=== PATIENT | male | born 1965 | race Caucasian/White ===

== ENCOUNTER 2023-01-15 14:38 | Inpatient (IN) | payer OTHER, SELFPAY ==
[2023-01-15] VITALS (97 sets, daily range): BP systolic 81–154; BP diastolic 44–109; PULSE 64–104; RESP 10–30; TEMP 36.8; O2SAT 97–99
--- NOTE | 2023-01-15 14:45 | RT.EKG_ITS ---
APPROVED REPORT Exam: Resting ECG Reason for Exam: took nitro, cardiac problems Patient Location: E HR:81 bpm ECG Measurements Heart Rate 81 AXIS UT 176 P 88 QRSd 94 QRS 84 QT 374 T 47 QTc 434 Conclusion Sinus rhythm...normal P axis, V-rate 60- 99
--- NOTE | 2023-01-15 15:24 | ED.GENADUL_ITS ---
Discharge Plan Disposition Patient Disposition: Admit to [facility] Condition: Stable Discharge Details Clinical Impression: Acute non-ST elevation myocardial infarction (NSTEMI) Primary Care Provider: Nyla Chen ED Provider: Elias Blackburn Home Meds and New Rx's Prescriptions: Continued latanoprost 0.005 % Drops 1 drp ophthalmic (eye) DAILY terbinafine HCl 1 % Cream 1 applic TOPICAL PRN PRN atorvastatin 80 mg Tablet 80 mg PO DAILY glipizide 10 mg Tablet 10 mg PO BID metoprolol succinate 100 mg Tablet Extended Release 24 Hr 100 mg PO DAILY aspirin 81 mg Tablet,Delayed Release (Dr/Ec) 81 mg PO DAILY dextroamphetamine-amphetamine [Adderall XR] 20 mg Capsule,Extended Release 24hr 20 mg PO DAILY metformin 1,000 mg Tablet 2,000 mg PO DAILY nitroglycerin 0.4 mg Tablet, Sublingual 0.4 mg sublingual PRN PRN folic acid 1 mg Tablet 1 mg PO DAILY lisinopril 40 mg Tablet 40 mg PO DAILY cholecalciferol (vitamin D3) 25 mcg (1,000 unit) Capsule 25 mcg PO DAILY duloxetine 60 mg Capsule,Delayed Release(Dr/Ec) 120 mg PO DAILY peg 3350-electrolytes 227.1-21.5-6.36 gram Powder In Packet 240 ml PO DAILY rivaroxaban 20 mg Tablet 20 mg PO DAILY Ozempic 1 mg/dose (2 mg/1.5 mL) Pen Injector 1 mg SUBCUT QWEEK Discharge Data Discharge Physician: Elias Blackburn Medical Decision Making Patient presents to the emergency department complaining of sore throat that radiates to his back which is the same way he felt when he had angina in the past requiring stenting. Patient states that the symptoms started about 1 week ago. Been on and off. patient with a history of coronary artery disease takes aspirin daily and intubated today. EKG does not show any acute abnormality Labs are unremarkable first troponin was elevated. The second troponin is the same level the first troponin. Chest x-ray does not show any abnormality. Jhlva-go-zlsr ultrasound cardiac limited echocardiography was done by me shows normal left ventricular function with good contractility no pericardial effusion normal IVC collapsibility no wall motion abnormalities. Shared disposition: Patient with known coronary artery disease known history of pulmonary emboli. Takes aspirin daily as well as Xarelto who presents with atypical symptoms stating that he has a sore throat which is the same symptoms he had when he had angina. EKG is unremarkable Labs show elevation of the troponin at the same level. This patient probably had a non-STEMI or has unstable angina and will need to be admitted to the hospital for further cardiology management. Differential Diagnosis Differential Diagnosis: 1. Acute coronary syndrome 2. Pharyngitis 3. Non- STEMI Medical Records Medical records reviewed: Yes I reviewed the patient's medical records. Imaging Data Radiologic Study: Attestation: I personally reviewed and interpreted this imaging study as follows: Imaging: X-Ray My impression: no acute findings Radiologist's impression: Exam(s) XR PORTABLE CHEST AP EXAM: XR PORTABLE CHEST AP CLINICAL HISTORY: chest pain TECHNIQUE: 2D digital imaging was performed of the chest. One image was obtained. An AP view was obtained. COMPARISON: No exams were available for comparison FINDINGS: MEDIASTINUM: Normal. HEART: Normal. PULMONARY VASCULATURE: Normal. LUNGS: Clear. PLEURAL SPACE: No pleural effusion or pneumothorax. BONE:Within normal limits for the patient's age. OTHER FINDINGS:Normal. IMPRESSION: No acute pulmonary findings. DATA REPOSITORY: RADIATION DOSE DELIVERED: Lab Data Lab results reviewed: Yes I reviewed the patient's lab results. Labs: SPEC #: [id number] SHANTHI: 01/15/23 STATUS: COMP REQ #: [id number] RECD: 01/15/[address]: Elias Blackburn M.D. ENTERED: 01/15/[address]: NYLA CHEN FAX #: ORDERED: CBC/Diff Test Result Flag Reference Verified WBC 10.72 4.4-10.8 10^3/uL 01/15/23 RBC 4.64 4.36-5.78 10^6/uL 01/15/23 HGB 15.6 13.5-17.5 g/dL 01/15/23 HCT 45.5 40.0-50.0 % 01/15/23 MCV 98 H 80-95 fL 01/15/23 MCH 33.6 H 27.0-33.0 pg 01/15/23 MCHC 34.3 32.0-36.0 % 01/15/23 RDW 12.8 11.8-14.1 % 01/15/23 Platelet Count 172 130-400 10^3/uL 01/15/23 MPV 10.3 8.0-11.0 fL 01/15/23 Neutrophils % 62.9 01/15/23 Lymphocytes % 26.8 01/15/23 Monocytes % 7.6 01/15/23 Eosinophils % 2.1 01/15/23 Basophils % 0.3 01/15/23 Immature Grans % 0.3 01/15/23 Nucleated RBC 0.0 0.0-0.3 % 01/15/23 Absolute Neutrophil Count 6.75 H 1.2-6.7 10^3/uL 01/15/23 Absolute Lymphocyte Count 2.87 1.2-3.4 10^3/uL 01/15/23 Absolute Monocyte Count 0.82 H 0.1-0.8 10^3/uL 01/15/23 Absolute Eosinophil Count 0.22 0.0-0.7 10^3/uL 01/15/23 Absolute Basophil Count 0.03 0.0-0.2 10^3/uL 01/15/23 Patient: Eyal Link 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 STATUS: REG ER BED: DIS: SPEC #: [id number] SHANTHI: 01/15/23 STATUS: COMP REQ #: [id number] RECD: 01/15/[address] [facility] [address]: Elias Blackburn M.D. ENTERED: 01/15/23-1557 SERGO MONTES: NYLA CHEN FAX #: ORDERED: CMP, MG, Troponin I Test Result Flag Reference Verified Calcium 9.4 8.5-10.1 mg/dL 01/15/23 Glucose 128 H 74-106 mg/dL 01/15/23 BUN 12 7-18 mg/dL 01/15/23 Creatinine 1.2 0.70-1.30 mg/dL 01/15/23 Estimated GFR 69.66 mL/min/1.73m2 01/15/23 The eGFR is calculated from a serum creatinine using the CKD-EPI 2020 equation. Other variables required for the equation are gender and age; this equation does not include a race coefficient. This equation has similar overall performance to previous equations except values may differ, in particular, in patients with higher values of eGFR and younger-aged adults. Total Protein 7.7 6.4-8.2 g/dL 01/15/23 Albumin 3.5 3.4-5.0 g/dL 01/15/23 Bilirubin, Total 0.7 0.2-1.0 mg/dL 01/15/23 Alk Phos 76 46-116 U/L 01/15/23 Sodium 137 136-145 mmol/L 01/15/23 Potassium 3.9 3.5-5.1 mmol/L 01/15/23 Chloride 103 98-107 mmol/L 01/15/23 CO2 27.5 21.0-32.0 mmol/L 01/15/23 Anion Gap 6.5 3-11 mmol/L 01/15/23 AST 24 15-37 U/L 01/15/23 ALT 50 16-63 U/L 01/15/23 Magnesium 1.6 L 1.8-2.4 mg/dL 01/15/23 Cardiac Troponin I 503 *H <or=60 ng/L 01/15/23 Critical TROPONIN value reported to and readback from DOUGLAS MCGINNIS (ED) at 165001/15/23 by ADI An elevated/abnormal troponin value above 60ng/L (which is the 99th percentile cutoff of a normal, healthy reference population) must be interpreted in the context of the clinical presentation. Clinical and laboratory correlation is required to evaluate for an acute myocardial infarction. The results of this assay can be falsely lowered second Troponin 591 RUN DATE: 01/15/23 [facility] PAGE 1 RUN TIME: [address] RUN USER: [place] [address] Aniya Richardson MD PATIENT REPORT PATIENT: Eyal Link LOC: ER U #: [id number] /SX: 1965 M ROOM: RE01/15/[address]: Elias Blackburn M.D. STATUS: REG ER BED: DIS: SPEC #: [id number] SHANTHI: 01/15/23 STATUS: COMP REQ #: [id number] RECD: 01/15/[address]: Elias Blackburn M.D. ENTERED: 01/15/[address] [facility] [address]: NYLA CHEN FAX #: ORDERED: Troponin I Test Result Flag Reference Verified Cardiac Troponin I 591 *H <or=60 ng/L 01/15/23-1820 Critical value TROPONIN Reported to [email or web address] [address]/15/23 by [email or web address] An elevated/abnormal troponin value above 60ng/L (which is the 99th percentile cutoff of a normal, healthy reference population) must be interpreted in the context of the clinical presentation. Clinical and laboratory correlation is required to evaluate for an acute myocardial infarction. The results of this assay can be falsely lowered due to the consumption of Biotin (Vitamin B7). ECG Data Attestation: I personally reviewed and interpreted this ECG (s) as follows: Prior ECG tracings: available for review Interpretation: Normal sinus rhythm heart rate 81 DC interval normal normal axis no acute ST-T changes unchanged from previous EKG Core Measures AMI Core Measures Followed: Yes HPI General Date/Time Provider Initiated Documentation: 01/15/23 15:24 . HPI Narrative: Patient presents to the emergency department stating that he had a sore throat and 2 nitroglycerin with improvement. Patient states that he has a history of coronary artery disease with stent in place and he is the interventional episode that he had started as a sore throat that radiated to his back and neck which is nonradiating today. Patient is presenting to the emergency department frequently for the same symptoms and after use of nitroglycerin. States that the original sore throat was 6/10 and now is about 3/10. Denies any fever denies any chills denies any shortness of breath. States the last stresses he had was 2 years ago. Related Data Home Medications Medication Instructions Recorded Confirmed aspirin 81 mg tablet,delayed 81 mg PO DAILY 01/15/23 01/15/23 release atorvastatin 80 mg tablet 80 mg PO DAILY 01/15/23 01/15/23 cholecalciferol (vitamin D3) 25 25 mcg PO DAILY 01/15/23 01/15/23 mcg (1,000 unit) capsule dextroamphetamine-amphetamine ER 20 mg PO DAILY 01/15/23 01/15/23 20 mg 24hr capsule,extend release (Adderall XR) duloxetine 60 mg capsule,delayed 120 mg PO DAILY 01/15/23 01/15/23 release folic acid 1 mg tablet 1 mg PO DAILY 01/15/23 01/15/23 glipizide 10 mg tablet 10 mg PO BID 01/15/23 01/15/23 latanoprost 0.005 % eye drops 1 drp ophthalmic (eye) DAILY 01/15/23 01/15/23 lisinopril 40 mg tablet 40 mg PO DAILY 01/15/23 01/15/23 metformin 1,000 mg tablet 2,000 mg PO DAILY 01/15/23 01/15/23 metoprolol succinate 100 mg 100 mg PO DAILY 01/15/23 01/15/23 tablet,extended release 24 hr nitroglycerin 0.4 mg sublingual 0.4 mg sublingual PRN PRN 01/15/23 01/15/23 tablet peg 3350-electrolytes 227.1 240 ml PO DAILY 01/15/23 01/15/23 gram-21.5 gram-6.36gram oral powder packet rivaroxaban 20 mg tablet 20 mg PO DAILY 01/15/23 01/15/23 semaglutide 1 mg/dose (2 mg/1.5 1 mg subcut QWEEK 01/15/23 01/15/23 mL) subcutaneous pen injector (Ozempic) terbinafine HCl 1 % topical cream 1 applic topical PRN PRN 01/15/23 01/15/23 Allergies Allergy/AdvReac Type Severity Reaction Status Date / Time ciprofloxacin AdvReac Mild Itching Unverified 01/15/23 15:00 General Stated Complaint: GenMedical ALY: 3 Review of Systems All systems reviewed & are unremarkable except as noted in HPI and below Constitutional Constitutional: Reports as per HPI and Reports system reviewed and no additional complaints, except as documented Eyes Eyes: Reports system reviewed and no additional complaints, except as documented ENT Ears, Nose, Mouth, and Throat: Reports system reviewed and no additional complaints, except as documented Cardiovascular Cardiovascular: Reports as per HPI, Reports system reviewed and no additional complaints, except as documented and Denies chest pain with activity Respiratory Respiratory: Reports as per HPI Gastrointestinal Gastrointestinal: Reports as per HPI and Reports system reviewed and no additional complaints, except as documented Musculoskeletal Musculoskeletal: Reports system reviewed and no additional complaints, except as documented and Reports as per HPI Neurologic Neurologic: Reports system reviewed and no additional complaints, except as documented Psychiatric Psychiatric: Reports system reviewed and no additional complaints, except as documented Hematologic/Lymphatic Hematologic/Lymphatic: Reports system reviewed and no additional complaints, except as documented PFSH All Active Problems (Updated 01/15/23 @ 19:03 by Elias Blackburn MD) Acute non-ST elevation myocardial infarction (NSTEMI) (Acute) Social History Smoking/Tobacco Use Status: Current every day Tobacco Type: cigarettes Smoking risk assessment performed?: Yes Substance use type: does not use Do you feel safe at home: Yes Do you feel safe in your relationship?: Yes Exam Const General: cooperative, healthy appearing, comfortable and no acute distress HENMT Head: normal to inspection Ears: hearing grossly normal bilaterally and TM normal on the left Mouth: oral mucosae normal, lip normal, tongue normal and moist mucous membranes Throat: posterior oropharynx abnormal erythema and postnasal drainage Eyes General: appearance normal, both eyes and all related structures Neck Neck: normal visual inspection, full ROM and no lymphadenopathy Chest Chest: normal inspection of the chest and normal palpation of entire chest wall Resp Effort & Inspection: normal respiratory effort and able to speak in complete sentences Auscultation: clear to auscultation bilaterally Cardio Jugular venous pressure: no JVD Palpation: normal PMI Rate: regular rate Rhythm: regular rhythm GI Inspection: normal to inspection Back/Spine/Pelvis Back: no CVA tenderness Skin General skin exam: no rashes or lesions noted Rashes: no rashes Neuro General: patient alert, patient awake, patient oriented x3 and oriented Sensory Exam: no sensory deficits noted Course Vital Signs Vital signs: Vital Signs Temperature 36.8 C 01/15/23 14:48 Pulse 87 01/15/23 14:48 Respiratory Rate 20 01/15/23 14:48 Blood Pressure 140/68 01/15/23 14:48 Pulse Oximetry 99 01/15/23 14:48 Temperature 36.8 C 01/15/23 14:48 Temperature Source Skin 01/15/23 14:48 Pulse 87 01/15/23 14:48 Respiratory Rate 18 01/15/23 15:07 Respiratory Effort Normal, Non-Labored 01/15/23 15:07 Respiratory Depth Normal 01/15/23 15:07 Respiratory Pattern Normal 01/15/23 15:07 Blood Pressure 140/68 01/15/23 14:48 Blood Pressure Position Sitting 01/15/23 14:48 Pulse Oximetry 99 01/15/23 14:48 Oxygen Delivery Method Room Air 01/15/23 14:48 Oxygen Flow Rate 0 01/15/23 14:48 Pain Level 0 01/15/23 14:48 POCUS Exam (ED) Limited Cardiac Exam DATE OF EXAM: 01/15/23 TIME OF EXAM: 18:45 PROVIDER THAT PERFORMED THE STUDY: Elias Blackburn IS THIS A REPEAT EXAM DURING THIS ENCOUNTER: no REASON FOR EXAM: Chest pain and WI VISUALIZED STRUCTURES: Four Chambers, Left atrium, Left ventricle, LVOT, Right atrium, Right ventricle, Aortic valve, Mitral valve, Interventricular septum and IVC VIEW OBTAINED: Apical 4-Chamber, Parasternal long-axis, Parasternal short-axis and Subxiphoid PERTINENT FINDINGS/IMPRESSION: IVC inspiratory collapsability (normal) and No apparent abnormalities; No LV dysfunction, No pericardial effusion, No plethoric IVC, No RV dilation and No RV dysfunction DIFFERENTIAL DIAGNOSES: NSTEMI with preserved LV function no wall motion abnormalities Exam complete
--- NOTE | 2023-01-15 15:45 | DI.RAD_ITS ---
Exam(s) XR PORTABLE CHEST AP EXAM: XR PORTABLE CHEST AP CLINICAL HISTORY: chest pain TECHNIQUE: 2D digital imaging was performed of the chest. One image was obtained. An AP view was ob tained. COMPARISON: No exams were available for comparison FINDINGS: MEDIASTINUM: Normal. HEART: Normal. PULMONARY VASCULATURE: Normal. LUNGS: Clear. PLEURAL SPACE: No pleural effusion or pneumothorax. BONE:Within normal limits for the patient's age. OTHER FINDINGS:Normal. IMPRESSION: No acute pulmonary findings. DATA REPOSITORY: RADIATION DOSE DELIVERED:
[2023-01-15 16:12] LABS: Abs Immature Grans 0.03 10^3/uL (0.0-0.06); Absolute Basophil Count 0.03 10^3/uL (0.0-0.2); Absolute Eosinophil Count 0.22 10^3/uL (0.0-0.7); Absolute Lymphocyte Count 2.87 10^3/uL (1.2-3.4); Absolute Monocyte Count 0.82 10^3/uL (0.1-0.8); Absolute Neutrophil Count 6.75 10^3/uL (1.2-6.7); Basophils % 0.3; Eosinophils % 2.1; HCT 45.5 % (40.0-50.0); HGB 15.6 g/dL (13.5-17.5); Immature Grans % 0.3; Lymphocytes % 26.8; MCH 33.6 pg (27.0-33.0); MCHC 34.3 % (32.0-36.0); MCV 98 fL (80-95); MPV 10.3 fL (8.0-11.0); Monocytes % 7.6; Neutrophils % 62.9; Platelet Count 172 10^3/uL (130-400); RBC 4.64 10^6/uL (4.36-5.78); RDW 12.8 % (11.8-14.1); RDW-SD 46.2 fL; WBC 10.72 10^3/uL (4.4-10.8)
[2023-01-15 16:38] LABS: ALT 50 U/L (16-63); AST 24 U/L (15-37); Albumin 3.5 g/dL (3.4-5.0); Alkaline Phosphatase 76 U/L (46-116); Anion Gap 6.5 mmol/L (3-11); BUN 12 mg/dL (7-18); Bilirubin, Total 0.7 mg/dL (0.2-1.0); CO2 27.5 mmol/L (21.0-32.0); CREATININE 1.2 mg/dL (0.70-1.30); Calcium 9.4 mg/dL (8.5-10.1); Chloride 103 mmol/L (98-107); Estimated GFR 69.66 (mL/min/1.73m2); Glucose 128 mg/dL (74-106); Magnesium 1.6 mg/dL (1.8-2.4); Potassium 3.9 mmol/L (3.5-5.1); Sodium 137 mmol/L (136-145); Total Protein 7.7 g/dL (6.4-8.2)
[2023-01-15 16:54] LABS: Troponin I 503 ng/L (<or=60)
[2023-01-15 18:21] LABS: Troponin I 591 ng/L (<or=60)
--- NOTE | 2023-01-15 21:54 | HPE_ITS ---
Date of service: 01/15/23 Time of Service: 21:54 Assessment and Plan Assessment and plan (1) Acute non-ST elevation myocardial infarction (NSTEMI): Status: Acute Assessment and plan: Throat pain is appears to be anginal equivalent for this patient given his reported history and response to nitroglycerine. His EKG is totally normal, but his troponin is elevated. The symptoms started a few days ago and the troponin trend is relatively flat. His symptoms seem to have been triggered by missing at least 2 days of all of his medications. Given the above factors, although this is technically NSTEMI, I agree with ED treatment of continuing aspirin and rivaroxaban and not transitioning to heparin or adding DAPT with the additional bleeding risk and uncertain benefit. Continue to trend troponin overnight. He is on high intensity statin, get lipids to see if at goal of <70 for LDL. As noted above, adherence is a significant issue. His vital signs have been stable, continue metoprolol as well. (2) Smoker: Status: Acute Assessment and plan: Slightly contemplative. He quit for 2 years before after brother of CAD. Nicotrol for now. (3) Type 2 diabetes mellitus: Status: Acute Assessment and plan: He reports an A1c in the low 7s a few months ago, repeat with labs. Given no contrast and patient preference, continue his outpatient medications. Hold metformin if he ends up needing contrast. (4) Hypertension: Status: Chronic Assessment and plan: BP running a little high but he has missed a few days of medication this week, continue outpatient medication for now, goal <130/80. (5) Candidal intertrigo: Status: Acute Assessment and plan: Has antifungal cream (6) ADHD: Assessment and plan: Recent evidence suggests his stimulant therapy does not increase assisted heart disease or stroke, but I still think prudent to hold Adderall as inpatient. (7) DVT prophylaxis: Status: Acute Assessment and plan: He is on chronic DOAC for h/o PE (8) Discharge planning issues: Status: Acute Assessment and plan: Stable on telemetry given active heart disease. Full code. 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 The patient states the throat pain has been coming on during the last few days while climbing stairs or walking. It goes away with rest after a few minutes to an hour. It is associated with SOB and lightheadeness, no nausea or diaphoresis. This started a few days ago. 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 This was associated with some tingling in the left arm/hand. He took NTG, which he hadn't needed to take in years, and the pain went away. He currently is free of pain. This throat pain is the same pain he had prior to his previous cardiac stents. He does admit he went 2 days without his medication before resuming yesterday evening. He doesn't like taking pills and can forget at times. Review of Systems Constitutional Constitutional: Denies chills, Denies fever(s), Denies headache(s), Denies malaise, Reports poor appetite, Denies weakness and Reports weight loss (has noted in past 2 months, not sure how much but a couple notches on belt) Eyes Eyes: Denies change in vision and Denies irritation ENT Ears, Nose, Mouth, and Throat: Denies dental pain, Denies headache(s), Denies hoarseness, Denies mouth lesions, Reports nasal congestion (for months), Denies nasal discharge and Denies throat swelling Cardiovascular Cardiovascular: Denies chest pain, Reports leg edema (chronic, left worse than right), Denies palpitations and Denies orthopnea Respiratory Respiratory: Reports cough (relates to smoking), Denies hemoptysis, Denies excessive phlegm production and Denies wheezing Gastrointestinal Gastrointestinal: Denies abdominal pain, Denies melena, Denies hematochezia, Denies constipation, Denies heartburn, Denies diarrhea and Denies vomiting Genitourinary Genitourinary: Denies hematuria, Denies dysuria, Denies urinary frequency and Denies urinary incontinence Musculoskeletal Musculoskeletal: Denies joint swelling Integumentary/Breasts Skin/Breast: Reports rash (some yeast in arm pits, under breasts) and Denies skin ulcer Neurologic Neurologic: Denies headache(s), Denies sensory deficit and Denies weakness Psychiatric Psychiatric: Denies mood swings and Denies panic attacks Endocrine Endocrine: Denies polydipsia, Denies polyuria and Denies palpitations Hematologic/Lymphatic Hematologic/Lymphatic: Denies easy bleeding Allergic/Immunologic Allergic/Immunologic: Denies throat swelling and Denies wheezing PFSH All Active Problems (Updated 01/15/23 @ 22:20 by Jerry Miranda) Discharge planning issues (Acute) DVT prophylaxis (Acute) Smoker (Acute) Candidal intertrigo (Acute) Type 2 diabetes mellitus (Acute) Hypertension (Chronic) Acute non-ST elevation myocardial infarction (NSTEMI) (Acute) Medical History (Updated 01/15/23 @ 22:20 by Jerry Miranda) ADHD Coronary artery disease Glaucoma History of pulmonary embolism Perforation of colon as colonoscopy complication Surgical History (Updated 01/15/23 @ 22:07 by Jerry Miranda) S/P laparotomy multiple surgeries after perforation Family History (Updated 01/15/23 @ 22:08 by Jerry Miranda) Brother , multiple older brothers Heart disease Mother Heart disease Social History (Updated 01/15/23 @ 22:43 by Jerry Miranda) Smoking/Tobacco Use Status: Current every day Tobacco Type: cigarettes Counseling given: provider counseling, support medications and counseling >3 minutes Smoking risk assessment performed?: Yes Alcohol Intake: current Alcohol Intake frequency: 0-2 drinks per day Substance use type: does not use Do you feel safe at home: Yes Do you feel safe in your relationship?: Yes Additional Social history: Lives with GF Valentine and dog. 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 [employer] Allergies and Home Medications Allergies Allergy/AdvReac Type Severity Reaction Status Date / Time ciprofloxacin AdvReac Mild Itching Unverified 01/15/23 15:00 Home Medications Medication Instructions Recorded Confirmed Type aspirin 81 mg tablet,delayed 81 mg PO DAILY 01/15/23 01/15/23 History release atorvastatin 80 mg tablet 80 mg PO DAILY 01/15/23 01/15/23 History cholecalciferol (vitamin D3) 25 25 mcg PO DAILY 01/15/23 01/15/23 History mcg (1,000 unit) capsule dextroamphetamine-amphetamine ER 20 mg PO DAILY 01/15/23 01/15/23 History 20 mg 24hr capsule,extend release (Adderall XR) duloxetine 60 mg capsule,delayed 120 mg PO DAILY 01/15/23 01/15/23 History release folic acid 1 mg tablet 1 mg PO DAILY 01/15/23 01/15/23 History glipizide 10 mg tablet 10 mg PO BID 01/15/23 01/15/23 History latanoprost 0.005 % eye drops 1 drp ophthalmic (eye) DAILY 01/15/23 01/15/23 History lisinopril 40 mg tablet 40 mg PO DAILY 01/15/23 01/15/23 History metformin 1,000 mg tablet 2,000 mg PO DAILY 01/15/23 01/15/23 History metoprolol succinate 100 mg 100 mg PO DAILY 01/15/23 01/15/23 History tablet,extended release 24 hr nitroglycerin 0.4 mg sublingual 0.4 mg sublingual PRN PRN 01/15/23 01/15/23 History tablet peg 3350-electrolytes 227.1 240 ml PO DAILY 01/15/23 01/15/23 History gram-21.5 gram-6.36gram oral powder packet rivaroxaban 20 mg tablet 20 mg PO DAILY 01/15/23 01/15/23 History semaglutide 1 mg/dose (2 mg/1.5 1 mg subcut QWEEK 01/15/23 01/15/23 History mL) subcutaneous pen injector (Ozempic) terbinafine HCl 1 % topical cream 1 applic topical PRN PRN 01/15/23 01/15/23 History Exam Narrative Exam Narrative: GEN: Alert and oriented, pleasant and cooperative, gives linear history. No acute distress at rest lying in bed. HEENT: Head atraumatic. Conjunctiva clear, no icterus. PEERL, EOMI. no rhinorrhea. MMM, OP benign. Neck is supple with no masses or lymphadenopathy, trachea midline LUNGS: CTAB with normal effort CV: RRR with no murmurs, gallops, or rubs. ABD: +BS, soft, NT/ND. midline scar with large hernia vs weakness in abdominal wall to the left of the inferior scare EXT: no cyanosis, clubbing. 2+ luz LE edema to shins L>R, not tender or hot MSK: No joint redness or swelling NEURO: CN 2-12 grossly intact. Normal movement of 4 extremities. Normal speech and coordination. no tremor SKIN: No ulcers or open wounds. red patches with satellite lesions under breast folds.. PSYCH: normal mood and affect Results Imaging Chest x-ray: report reviewed (No acute pulmonary findings.) and image reviewed Additional studies: POCUS heart: IVC inspiratory collapsability (normal) and No apparent abnormalities; No LV dysfunction, No pericardial effusion, No plethoric IVC, No RV dilation and No RV dysfunction (per Dr. Blackburn) EKG: report reviewed and image reviewed (NSR, nl axis, intervals. No ischemic ST-T changes.) Labs 01/15/23 15:00 01/15/23 15:00 Labs: Laboratory Results - last 24 hr 01/15/23 01/15/23 01/15/23 15:00 15:00 17:55 WBC 10.72 RBC 4.64 Hgb 15.6 Hct 45.5 MCV 98 H MCH 33.6 H MCHC 34.3 RDW 12.8 Plt Count 172 MPV 10.3 Immature Gran % 0.3 Neutrophils % 62.9 Lymphocytes % 26.8 Monocytes % 7.6 Eosinophils % 2.1 Basophils % 0.3 Nucleated RBC % 0.0 Absolute Neutrophils 6.75 H Absolute Lymphocytes 2.87 Absolute Monocytes 0.82 H Absolute Eosinophils 0.22 Absolute Basophils 0.03 Sodium 137 Potassium 3.9 Chloride 103 Carbon Dioxide 27.5 Anion Gap 6.5 BUN 12 Creatinine 1.2 Est GFR (CKD-EPI 2020) 69.66 Glucose 128 H Calcium 9.4 Magnesium 1.6 L Total Bilirubin 0.7 AST 24 ALT 50 Alkaline Phosphatase 76 Troponin I 503 H* 591 H* Total Protein 7.7 Albumin 3.5 Last Vital Signs Temp 36.8 C 01/15/23 14:48 Pulse 84 01/15/23 20:01 Resp 22 01/15/23 20:01 BP 138/67 01/15/23 20:01 Pulse Ox 97 01/15/23 20:11 Time Spent Time spent with Patient: 55-74 minutes Time was spent: preparing to see the patient(eg.review tests), obtaining and/or reviewing separately otained hiistory, ordering medications,tests, procedures, referring, communicating with other health child care leader, indepentently interpreting results and counseling the patient
[2023-01-15 22:39] LABS: Calculated LDL 44 mg/dL (<100); Cholesterol 113 mg/dL (<200); HDL Cholesterol 31 mg/dL (40-60); Triglyceride 192 mg/dL (<150)
[2023-01-15 22:41] LABS: Troponin I 558 ng/L (<or=60)
[2023-01-15] MEDS: DULoxetine 30 MG CAP 120 MG PO (22:47)
[2023-01-15] MEDS: Rivaroxaban 10 MG TABLET 20 MG PO (22:48)
[2023-01-15] MEDS: Aspirin E.C. 81 MG TABEC PO (22:48)
[2023-01-15] MEDS: Cholecalciferol (Vitamin D3) 1,000 UNIT TAB 1000 UNITS PO (22:48)
[2023-01-15] MEDS: MAGNESIUM SULFATE 2 GM/50 ML BAG IVPB (22:49)
[2023-01-15 22:54] LABS: Vitamin B12 866 pg/mL (193-986)
[2023-01-15 23:21] LABS: *AMPHETAMINES SCREEN URINE Negative (Negative); *BARBITURATES SCREEN URINE Negative (Negative); *BENZODIAZEPINES SCREEN URINE Negative (Negative); Cannabinoids THC Negative (Negative); Cocaine Screen,Urine Negative (Negative); METHADONE URINE SCREEN Negative (Negative); OPIATES URINE SCREEN Negative (Negative)
[2023-01-15 23:22] LABS: Tricyclic Antidepressants Negative (Negative)
[2023-01-16 03:35] VITALS: BP 157/79; PULSE 98; RESP 18; TEMP 36; O2SAT 96
[2023-01-16 06:56] LABS: HCT 43.1 % (40.0-50.0); HGB 14.7 g/dL (13.5-17.5)
[2023-01-16 07:10] LABS: Magnesium 1.9 mg/dL (1.8-2.4)
[2023-01-16 07:19] LABS: Troponin I 385 ng/L (<or=60)
[2023-01-16 07:29] VITALS: BP 152/65; PULSE 90; RESP 18; TEMP 36.4; O2SAT 95
[2023-01-16 07:35] VITALS: PULSE 100
[2023-01-16] MEDS: Atorvastatin 40 MG TAB 80 MG PO (08:36)
[2023-01-16] MEDS: Folic Acid 1 MG TAB PO (08:36)
[2023-01-16] MEDS: Insulin Aspart 300 UNITS/3 ML PEN SC (08:37)
[2023-01-16] MEDS: Lisinopril 20 MG TAB 40 MG PO (08:37)
[2023-01-16] MEDS: metFORMIN 500 MG TAB 1000 MG PO (08:37)
[2023-01-16] MEDS: Metoprolol CR 100 MG TABCR PO (08:37)
--- NOTE | 2023-01-16 08:40 | CCONE_ITS ---
Date of service: 01/16/23 Time of Service: 08:40 Assessment and Plan Assessment and plan (1) Acute non-ST elevation myocardial infarction (NSTEMI): Status: Acute Assessment and plan: Patient has known coronary artery disease. He has had angina recently possibly related to omission of medications. Medications have been reinstituted. He currently appears stable. I would recommend referral for an outpatient follow- up and then cardiac catheterization to reassess his coronary anatomy. Patient appeared agreeable to this suggestion (2) Hypertension: Status: Chronic Assessment and plan: Continue therapy (3) Type 2 diabetes mellitus: Status: Acute Assessment and plan: Continue therapy History of Present Illness History of Present Illness Chief Complaint: Throat discomfort Narrative: This is a 57-year-old man with known coronary artery disease. In 2012 he had cardiac catheterization performed at [facility] because of typical angina he was found to have a 90% right coronary stenosis which was stented. Elsewhere he had a 30% stenosis of the circumflex, normal LAD and left main. Patient is followed by [facility] in [place]. He has not had any recent visit nor has he had stress testing for several years. His primary care provider is Dr. Chen in [place] He has diabetes hypertension dyslipidemia, family history of coronary disease, tobacco use and prior history of DVT for which she is on Xarelto He has noncompliance with medication, had not taken any of his medications for several days prior to presenting here with what sounds like progressive angina over a period of several days, if not longer. His anginal symptom is throat discomfort. He has taken nitroglycerin several times over the last week or so, reportedly with relief of symptoms Troponin has been elevated, though they have been decreasing. His EKG is normal He expresses that he would like to be discharged Review of Systems Cardiovascular Cardiovascular: Reports as per HPI, Reports chest pain with activity, Reports leg edema, Reports radiating jaw, neck or arm pain and Reports dyspnea Respiratory Respiratory: Reports dyspnea PFSH All Active Problems (Updated 01/15/23 @ 22:20 by Jerry Miranda) Discharge planning issues (Acute) DVT prophylaxis (Acute) Smoker (Acute) Candidal intertrigo (Acute) Type 2 diabetes mellitus (Acute) Hypertension (Chronic) Acute non-ST elevation myocardial infarction (NSTEMI) (Acute) Medical History (Updated 01/15/23 @ 22:20 by Jerry Miranda) ADHD Coronary artery disease Glaucoma History of pulmonary embolism Perforation of colon as colonoscopy complication Surgical History (Updated 01/15/23 @ 22:07 by Jerry Miranda) S/P laparotomy multiple surgeries after perforation Family History (Updated 01/15/23 @ 22:08 by Jerry Miranda) Brother , multiple older brothers Heart disease Mother Heart disease Social History (Updated 01/15/23 @ 22:43 by Jerry Miranda) Smoking/Tobacco Use Status: Current every day Tobacco Type: cigarettes Counseling given: provider counseling, support medications and counseling >3 minutes Smoking risk assessment performed?: Yes Alcohol Intake: current Alcohol Intake frequency: 0-2 drinks per day Substance use type: does not use Do you feel safe at home: Yes Do you feel safe in your relationship?: Yes Additional Social history: Lives with GF Valentine and dog. 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 [employer] Exam Narrative Exam Narrative: Obese no acute distress Neck Other: Unable to assess JVP carotid pulsations are grossly normal no bruits Resp Auscultation: clear to auscultation bilaterally Cardio Other: Heart is distant regular Extrem Other: Trace to 1+ right edema, 1-2+ left, venous stasis changes on the left Results Last Vital Signs Temp 36.4 C L 01/16/23 07:29 Pulse 90 01/16/23 07:29 Resp 18 01/16/23 07:29 BP 152/65 H 01/16/23 07:29 Pulse Ox 95 01/16/23 07:29 Labs 01/16/23 05:58 01/15/23 15:00 Labs: Laboratory Results - last 24 hr 01/15/23 01/15/23 01/15/23 15:00 15:00 17:55 WBC 10.72 RBC 4.64 Hgb 15.6 Hct 45.5 MCV 98 H MCH 33.6 H MCHC 34.3 RDW 12.8 Plt Count 172 MPV 10.3 Immature Gran % 0.3 Neutrophils % 62.9 Lymphocytes % 26.8 Monocytes % 7.6 Eosinophils % 2.1 Basophils % 0.3 Nucleated RBC % 0.0 Absolute Neutrophils 6.75 H Absolute Lymphocytes 2.87 Absolute Monocytes 0.82 H Absolute Eosinophils 0.22 Absolute Basophils 0.03 Sodium 137 Potassium 3.9 Chloride 103 Carbon Dioxide 27.5 Anion Gap 6.5 BUN 12 Creatinine 1.2 Est GFR (CKD-EPI 2020) 69.66 Glucose 128 H Hemoglobin A1c Calcium 9.4 Magnesium 1.6 L Total Bilirubin 0.7 AST 24 ALT 50 Alkaline Phosphatase 76 Troponin I 503 H* 591 H* Total Protein 7.7 Albumin 3.5 Triglycerides Total Cholesterol LDL Cholesterol, Calc HDL Cholesterol Vitamin B12 Urine Opiates Screen Urine Methadone Screen Ur Barbiturates Screen Ur Tricyclics Screen Ur Amphetamines Screen U Benzodiazepines Scrn Urine Cocaine Screen Ur THC Screen 01/15/23 01/15/23 01/15/23 21:48 21:48 21:48 WBC RBC Hgb Hct MCV MCH MCHC RDW Plt Count MPV Immature Gran % Neutrophils % Lymphocytes % Monocytes % Eosinophils % Basophils % Nucleated RBC % Absolute Neutrophils Absolute Lymphocytes Absolute Monocytes Absolute Eosinophils Absolute Basophils Sodium Potassium Chloride Carbon Dioxide Anion Gap BUN Creatinine Est GFR (CKD-EPI 2020) Glucose Hemoglobin A1c 7.0 H Calcium Magnesium Total Bilirubin AST ALT Alkaline Phosphatase Troponin I Total Protein Albumin Triglycerides 192 H Total Cholesterol 113 LDL Cholesterol, Calc 44 HDL Cholesterol 31 L Vitamin B12 866 Urine Opiates Screen Urine Methadone Screen Ur Barbiturates Screen Ur Tricyclics Screen Ur Amphetamines Screen U Benzodiazepines Scrn Urine Cocaine Screen Ur THC Screen 01/15/23 01/15/23 01/16/23 21:48 23:00 05:58 WBC RBC Hgb Hct MCV MCH MCHC RDW Plt Count MPV Immature Gran % Neutrophils % Lymphocytes % Monocytes % Eosinophils % Basophils % Nucleated RBC % Absolute Neutrophils Absolute Lymphocytes Absolute Monocytes Absolute Eosinophils Absolute Basophils Sodium Potassium Chloride Carbon Dioxide Anion Gap BUN Creatinine Est GFR (CKD-EPI 2020) Glucose Hemoglobin A1c Calcium Magnesium 1.9 Total Bilirubin AST ALT Alkaline Phosphatase Troponin I 558 H* 385 H* Total Protein Albumin Triglycerides Total Cholesterol LDL Cholesterol, Calc HDL Cholesterol Vitamin B12 Urine Opiates Screen Negative Urine Methadone Screen Negative Ur Barbiturates Screen Negative Ur Tricyclics Screen Negative Ur Amphetamines Screen Negative U Benzodiazepines Scrn Negative Urine Cocaine Screen Negative Ur THC Screen Negative 01/16/23 05:58 WBC RBC Hgb 14.7 Hct 43.1 MCV MCH MCHC RDW Plt Count MPV Immature Gran % Neutrophils % Lymphocytes % Monocytes % Eosinophils % Basophils % Nucleated RBC % Absolute Neutrophils Absolute Lymphocytes Absolute Monocytes Absolute Eosinophils Absolute Basophils Sodium Potassium Chloride Carbon Dioxide Anion Gap BUN Creatinine Est GFR (CKD-EPI 2020) Glucose Hemoglobin A1c Calcium Magnesium Total Bilirubin AST ALT Alkaline Phosphatase Troponin I Total Protein Albumin Triglycerides Total Cholesterol LDL Cholesterol, Calc HDL Cholesterol Vitamin B12 Urine Opiates Screen Urine Methadone Screen Ur Barbiturates Screen Ur Tricyclics Screen Ur Amphetamines Screen U Benzodiazepines Scrn Urine Cocaine Screen Ur THC Screen
[2023-01-16] MEDS: glipiZIDE 10 MG TAB PO (08:41)
--- NOTE | 2023-01-16 09:22 | PDOC.CMIN ---
- If Service Date Differs Date of service: 01/16/23 Time of Service: 09:22 Care Management Initial Assess REASON FOR HOSPITALIZATION:: NSTEMI PAST MEDICAL HISTORY/PAST SURGICAL HISTORY:: All Active Problems (Updated 01/15/23 @ 22:20 by Jerry Miranda). Discharge planning issues (Acute). DVT prophylaxis (Acute). Smoker (Acute). Candidal intertrigo (Acute). Type 2 diabetes mellitus (Acute). Hypertension (Chronic). Acute non-ST elevation myocardial infarction (NSTEMI) (Acute). Medical History (Updated 01/15/23 @ 22:20 by Jerry Miranda). ADHD. Coronary artery disease. Glaucoma. History of pulmonary embolism. Perforation of colon as colonoscopy complication. Surgical History (Updated 01/15/23 @ 22:07 by Jerry Miranda). S/P laparotomy. multiple surgeries after perforation PREVIOUS FUNCTIONAL STATUS/SOCIAL/FAMILY SUPPORTS:: Eyal lives in [facility] ADVANCE DIRECTIVES:: none on file Has patient been provided with info about the portal/API?: Yes Did the patient sign up for the portal?: No CODE STATUS:: Full Code INSURANCE COVERAGE / FINANCIAL ISSUES:: ME PRIMARY CARE PHYSICIAN:: Jerry Chen (ME) POTENTIAL DISCHARGE NEEDS:: follow up [facility] cardiology, PCP and plan of care PATIENT/FAMILY EDUCATION NEEDS:: Review of discharge instructions, limitations, activity, follow up plan, discuss Ask Me [employer] TRANSPORTATION:: via private vehicle with family/friends PLAN:: Anticipate Eyal will be discharged home with outpatient followup with cardiology at [facility]. Per Cardiology, he would benefit from a cardiac catheterization. Eyal will transport via private vehicle with family. CM will follow and assess for discharge planning needs.
--- NOTE | 2023-01-16 09:46 | DSE_ITS ---
Date of service: 01/16/23 Time of Service: 09:46 DS: Diagnosis Discharge Diagnosis (1) Acute non-ST elevation myocardial infarction (NSTEMI): Status: Acute (2) Hypertension: Status: Chronic (3) Type 2 diabetes mellitus: Status: Acute Discharge Plan Disposition Patient Disposition: Home Condition: Stable Discharge Details Reason For Visit: NSTEMI Admit Date/Time: 01/15/23 19:04 Admit Provider: Jerry Miranda Attending Provider: Jerry Miranda Primary Care Provider: Jerry Chen [facility] Course Hospital Course: This is a 57 year old male smoker with a history of DM, HTN, and CAD s/p LEAD PAINTER/stenting most recently in 2019 who presented to the ED with recurrent throat pain triggered by exertion and relieved by nitroglycerin.? This was in the setting of omitting his medication for 2 days. His work up in the ED showed troponin elevation to a peak of 591 (troponin -I). He was admitted to med/surg on telemetry for further monitoring and management. His medication resumed. He was seen by cardiology and recommendations for outpatient follow up with his waitangi tribunal member and then cardiac catheterization to reassess his coronary anatomy. He should continue his usual medication as directed, including nitroglycerin for his symptoms. He remains chest pain free and is stable for discharge to home with no services. discussed with DR Estrada. ? Home Meds and New Rx's Prescriptions: Continued latanoprost 0.005 % Drops 1 drp ophthalmic (eye) DAILY terbinafine HCl 1 % Cream 1 applic TOPICAL PRN PRN atorvastatin 80 mg Tablet 80 mg PO DAILY glipizide 10 mg Tablet 10 mg PO BID metoprolol succinate 100 mg Tablet Extended Release 24 Hr 100 mg PO DAILY aspirin 81 mg Tablet,Delayed Release (Dr/Ec) 81 mg PO DAILY dextroamphetamine-amphetamine [Adderall XR] 20 mg Capsule,Extended Release 24hr 20 mg PO DAILY metformin 1,000 mg Tablet 2,000 mg PO DAILY nitroglycerin 0.4 mg Tablet, Sublingual 0.4 mg sublingual PRN PRN folic acid 1 mg Tablet 1 mg PO DAILY lisinopril 40 mg Tablet 40 mg PO DAILY cholecalciferol (vitamin D3) 25 mcg (1,000 unit) Capsule 25 mcg PO DAILY duloxetine 60 mg Capsule,Delayed Release(Dr/Ec) 120 mg PO DAILY peg 3350-electrolytes 227.1-21.5-6.36 gram Powder In Packet 240 ml PO DAILY rivaroxaban 20 mg Tablet 20 mg PO DAILY Ozempic 1 mg/dose (2 mg/1.5 mL) Pen Injector 1 mg SUBCUT QWEEK Discharge Instructions Instructions: Coronary Artery Disease (DC) Stand Alone Forms: Nursing Discharge Form Referrals: Jerry Chen [Primary Care Provider] - 01/20/23 9:45 am Activity:: Activity as Tolerated Equipment/Supplies:: No Equipment Needed Diet:: As Tolerated Discharge Orders Discharge Orders: Discharge Order (Routine); Ordered 01/16/23 Ordered By: Deanne Peng Discharge Data Discharge Date/Time-TO BE ENTERED AT DEPARTURE: 01/16/23 10:25 DS: Summary Time Spent with Patient providing and/or coordinating discharge services: Less than 30 minutes Status at Discharge Functional status at discharge: independent ambulation Overall status at discharge: patient is back to baseline Mental Status: mental status grossly normal Speech and Movement: speech and movement normal Mood: congruent mood Affect: normal affect Exam Const General: cooperative, comfortable and no acute distress Nutritional Appearance: obese Orientation: alert, awake and oriented x3 HENMT Head: normal to inspection and normocephalic Mouth: oral mucosae normal Chest Chest: normal inspection of the chest Resp Effort & Inspection: normal respiratory effort Auscultation: clear to auscultation bilaterally Cardio Rate: regular rate Rhythm: regular rhythm GI Inspection: normal to inspection Skin General skin exam: no rashes or lesions noted Neuro General: patient alert, patient awake and patient oriented x3 Extrem General: normal to inspection and full ROM Psych Appearance: grossly normal Mental Status: mental status grossly normal Speech and Movement: speech and movement normal Mood: congruent mood Affect: normal affect Attitude: cooperative Thought Process: normal DS: Data Vitals/I&O Vitals and I&O: Vital Signs Temperature 36.4 C L 01/16/23 07:29 Temperature Source Tympanic 01/16/23 03:35 Pulse 100 H 01/16/23 07:35 Pulse Rhythm Regular 01/15/23 23:14 Pulse 80 01/15/23 20:01 Respiratory Rate 18 01/16/23 07:29 Respiratory Effort Normal 01/15/23 23:14 Respiratory Depth Normal 01/15/23 23:14 Respiratory Pattern Normal 01/15/23 23:14 Blood Pressure 152/65 H 01/16/23 07:29 Blood Pressure Mean 83 01/15/23 20:01 Blood Pressure Position Sitting 01/15/23 14:48 Pulse Oximetry 95 01/16/23 07:29 Oxygen Delivery Method Room Air 01/16/23 07:29 Oxygen Flow Rate 0 01/16/23 07:29 Pain Level 0 01/16/23 07:29 Intake & Output 01/15/23 01/15/23 01/16/23 11:59 23:59 11:59 Output Total 250 / 250 Balance -250 / -250 Weight 154.221 kg Output: Urine 250 / 250 Other: Urine Color Yellow Urine Appearance Clear Cloudy Urine Odor Normal Voiding Methods Urinal Data Completed and Pending Labs on day of discharge: Labs from last 24 hours 01/16/23 01/16/23 01/15/23 05:58 05:58 23:00 WBC RBC Hgb 14.7 Hct 43.1 MCV MCH MCHC RDW Plt Count MPV Immature Gran % Neutrophils % Lymphocytes % Monocytes % Eosinophils % Basophils % Nucleated RBC % Absolute Neutrophils Absolute Lymphocytes Absolute Monocytes Absolute Eosinophils Absolute Basophils Sodium Potassium Chloride Carbon Dioxide Anion Gap BUN Creatinine Est GFR (CKD-EPI 2020) Glucose Hemoglobin A1c Calcium Magnesium 1.9 Total Bilirubin AST ALT Alkaline Phosphatase Troponin I 385 H* Total Protein Albumin Triglycerides Total Cholesterol LDL Cholesterol, Calc HDL Cholesterol Vitamin B12 Urine Opiates Screen Negative Urine Methadone Screen Negative Ur Barbiturates Screen Negative Ur Tricyclics Screen Negative Ur Amphetamines Screen Negative U Benzodiazepines Scrn Negative Urine Cocaine Screen Negative Ur THC Screen Negative 01/15/23 01/15/23 01/15/23 21:48 21:48 21:48 WBC RBC Hgb Hct MCV MCH MCHC RDW Plt Count MPV Immature Gran % Neutrophils % Lymphocytes % Monocytes % Eosinophils % Basophils % Nucleated RBC % Absolute Neutrophils Absolute Lymphocytes Absolute Monocytes Absolute Eosinophils Absolute Basophils Sodium Potassium Chloride Carbon Dioxide Anion Gap BUN Creatinine Est GFR (CKD-EPI 2020) Glucose Hemoglobin A1c 7.0 H Calcium Magnesium Total Bilirubin AST ALT Alkaline Phosphatase Troponin I 558 H* Total Protein Albumin Triglycerides Total Cholesterol LDL Cholesterol, Calc HDL Cholesterol Vitamin B12 866 Urine Opiates Screen Urine Methadone Screen Ur Barbiturates Screen Ur Tricyclics Screen Ur Amphetamines Screen U Benzodiazepines Scrn Urine Cocaine Screen Ur THC Screen 01/15/23 01/15/23 01/15/23 21:48 17:55 15:00 WBC 10.72 RBC 4.64 Hgb 15.6 Hct 45.5 MCV 98 H MCH 33.6 H MCHC 34.3 RDW 12.8 Plt Count 172 MPV 10.3 Immature Gran % 0.3 Neutrophils % 62.9 Lymphocytes % 26.8 Monocytes % 7.6 Eosinophils % 2.1 Basophils % 0.3 Nucleated RBC % 0.0 Absolute Neutrophils 6.75 H Absolute Lymphocytes 2.87 Absolute Monocytes 0.82 H Absolute Eosinophils 0.22 Absolute Basophils 0.03 Sodium Potassium Chloride Carbon Dioxide Anion Gap BUN Creatinine Est GFR (CKD-EPI 2020) Glucose Hemoglobin A1c Calcium Magnesium Total Bilirubin AST ALT Alkaline Phosphatase Troponin I 591 H* Total Protein Albumin Triglycerides 192 H Total Cholesterol 113 LDL Cholesterol, Calc 44 HDL Cholesterol 31 L Vitamin B12 Urine Opiates Screen Urine Methadone Screen Ur Barbiturates Screen Ur Tricyclics Screen Ur Amphetamines Screen U Benzodiazepines Scrn Urine Cocaine Screen Ur THC Screen 01/15/23 15:00 WBC RBC Hgb Hct MCV MCH MCHC RDW Plt Count MPV Immature Gran % Neutrophils % Lymphocytes % Monocytes % Eosinophils % Basophils % Nucleated RBC % Absolute Neutrophils Absolute Lymphocytes Absolute Monocytes Absolute Eosinophils Absolute Basophils Sodium 137 Potassium 3.9 Chloride 103 Carbon Dioxide 27.5 Anion Gap 6.5 BUN 12 Creatinine 1.2 Est GFR (CKD-EPI 2020) 69.66 Glucose 128 H Hemoglobin A1c Calcium 9.4 Magnesium 1.6 L Total Bilirubin 0.7 AST 24 ALT 50 Alkaline Phosphatase 76 Troponin I 503 H* Total Protein 7.7 Albumin 3.5 Triglycerides Total Cholesterol LDL Cholesterol, Calc HDL Cholesterol Vitamin B12 Urine Opiates Screen Urine Methadone Screen Ur Barbiturates Screen Ur Tricyclics Screen Ur Amphetamines Screen U Benzodiazepines Scrn Urine Cocaine Screen Ur THC Screen PFSH All Active Problems (Updated 01/17/23 @ 00:01 by CardozLogan DE DIOS) Smoker (Acute) Candidal intertrigo (Acute) Type 2 diabetes mellitus (Acute) Hypertension (Chronic) Acute non-ST elevation myocardial infarction (NSTEMI) (Acute) Medical History (Updated 01/17/23 @ 00:01 by TEO DE DIOS) ADHD Coronary artery disease Glaucoma History of pulmonary embolism Perforation of colon as colonoscopy complication Surgical History (Updated 01/15/23 @ 22:07 by Jerry Miranda) S/P laparotomy multiple surgeries after perforation Family History (Updated 01/15/23 @ 22:08 by Jerry Miranda) Brother , multiple older brothers Heart disease Mother Heart disease Social History (Updated 01/15/23 @ 22:43 by Jerry Miranda) Smoking/Tobacco Use Status: Current every day Tobacco Type: cigarettes Counseling given: provider counseling, support medications and counseling >3 minutes Smoking risk assessment performed?: Yes Alcohol Intake: current Alcohol Intake frequency: 0-2 drinks per day Substance use type: does not use Do you feel safe at home: Yes Do you feel safe in your relationship?: Yes Additional Social history: Lives with [email or web address] Valentine and dog. 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
--- NOTE | 2023-01-16 10:44 | PDOC.CMPRO ---
- If Service Date Differs Date of service: 01/16/23 Time of Service: 10:44 Care Management Progress Note Eyal was discharged early in the day before CM was able to meet with him. He was discharged to home with no new services and will folllow up with his PCP. An appointment has been scheduled for 01/20/23 at 9:45 am.
== END 2023-01-16 10:25 | disposition home or self-care (01) | DRG 282 ==
LOC: ER 19:14 → MS 20:50
PROVIDERS: Admitting Provider Family Medicine; Emergency Provider Emergency Medicine Emergency Medical Services; PCP Family Medicine; Visit Provider Family Medicine
DX: I21.4 Non-ST elevation (NSTEMI) myocardial infarction (principal); E11.9 Type 2 diabetes mellitus without complications; F17.210 Nicotine dependence, cigarettes, uncomplicated; I10 Essential (primary) hypertension; B37.2 Candidiasis of skin and nail; F90.9 Attention-deficit hyperactivity disorder, unspecified type; I25.10 Atherosclerotic heart disease of native coronary artery without angina pectoris; Z95.5 Presence of coronary angioplasty implant and graft; Z86.711 Personal history of pulmonary embolism; H40.9 Unspecified glaucoma; Z79.84 Long term (current) use of oral hypoglycemic drugs; Z79.82 Long term (current) use of aspirin
CPT/HCPCS: 36415; 80053; 80061; 80307; 93005; 99285; 71045; 82607; 83036; 83735; 84484; 85014; 85018; 85025; 93010; 99238

== ENCOUNTER 2023-02-26 09:34 | Outpatient (CLI) | payer OTHER, SELFPAY ==
[2023-02-25 13:44] LABS: BUN 11 mg/dL (7-18); CREATININE 1.3 mg/dL (0.70-1.30); Calcium 9.1 mg/dL (8.5-10.1); Chloride 103 mmol/L (98-107); Estimated GFR 63.28 (mL/min/1.73m2); Glucose 161 mg/dL (74-106); Potassium 4.1 mmol/L (3.5-5.1); Sodium 138 mmol/L (136-145)
== END 2023-02-26 09:35 | disposition home or self-care (01) ==
PROVIDERS: PCP Family Medicine; Visit Provider Physician Assistant
DX: E11.9 Type 2 diabetes mellitus without complications (principal)
CPT/HCPCS: 36415; 80048

== ENCOUNTER 2023-08-21 12:16 | Emergency (ER) | payer OTHER, SELFPAY ==
[2023-08-21] VITALS (79 sets, daily range): BP systolic 82–150; BP diastolic 30–70; PULSE 84–119; RESP 14–30; TEMP 36.5–37.6; O2SAT 96
--- NOTE | 2023-08-21 12:30 | RT.EKG_ITS ---
APPROVED REPORT Exam: Resting ECG Reason for Exam: Vomiting, Atypical Chest pain Patient Location: E HR:113 bpm ECG Measurements Heart Rate 113 AXIS MD 171 P 75 QRSd 90 QRS 74 QT 318 T 65 QTc 436 Conclusion Sinus tachycardia no acute ischemic change
--- NOTE | 2023-08-21 12:37 | DI.CT_ITS ---
Exam(s) CT CHEST PE ABD PELVIS W EXAM: CT CHEST PE ABD PELVIS W CLINICAL HISTORY: Right chest pain, Hx of DVT, N/V, hx of Bowel perf. TECHNIQUE: Imaging Protocol: Axial CT angiography was performed with multi-slice acquisition and mu lti-planar and/or 3D reconstructions. CONTRAST MATERIAL: Intravenous: Omnipaque 350contrast volume:100 mL COMPARISON: No exams were available for comparison FINDINGS: CHEST: Tracheobronchial tree: Patent where visualized. Pulmonary parenchyma: There is a right upper lobe infiltrate with air bronchograms consistent with pn eumonia. Small ground-glass opacities are also seen in the right lower lobe with a small area of con solidation posteriorly. No focal consolidations are seen in the left lung. No architectural distort ion. Pulmonary Arteries: No evidence of filling defect to suggest pulmonary emboli. Mediastinum and [place]: Mildly enlarged lymph nodes are seen in the mediastinum and right hilum which a re likely reactive. The esophagus is unremarkable. Visualized thyroid gland: Unremarkable. Pleura: No effusion or pneumothorax. Heart: The heart is not dilated. Coronary artery calcifications and/or stents are present. No perica rdial effusion. Aorta: Thoracic aorta non-dilated. No evidence of dissection. Atherosclerosis. Bones: Within normal limits for the patient's age. Soft tissues: Gynecomastia. ABDOMEN: Liver: Normal density. No measurable mass. Portal, Superior Mesenteric, and Splenic Veins: Unremarkable. Gallbladder and Biliary Tract: Gallstone. No biliary ductal dilatation. Pancreas: Normal density, no abnormal calcifications or inflammatory process. Spleen: Normal. Adrenals: No masses seen. Kidneys: There is marked atrophy of the left kidney. There is compensatory hypertrophy of the right k idney. No radiodense stones or obstructive uropathy. Left renal cysts are present. No follow-up is re commended. Abdominal Aorta: Abdominal portion non-dilated. Atherosclerosis. IVC: There is an IVC filter in place below the level of the renal veins. Bowel: There is diastasis of the anterior abdominal wall and there is a left anterior abdominal wall hernia containing an unremarkable loop of small bowel. There is no evidence of bowel obstruction or b owel wall thickening. No evidence of appendicitis. There is no evidence of pneumatosis. Peritoneal Cavity: No ascites, collection or mesenteric inflammatory response. No free air. Lymph Nodes: Within normal limits. Bones: Within normal limits for the patient's age. Soft Tissues: Please see the above section under bowel. PELVIS: Bladder: Symmetric distention, no gross wall thickening. Reproductive Organs: Unremarkable as visualized. Lymph Nodes: Within normal limits. Bones: Within normal limits. IMPRESSION: 1. No evidence pulmonary embolism, thoracic aortic dissection or aneurysm. 2. Right upper and right lower lobe pneumonia. 3. No acute abdominal or pelvic process. 4. Incidental finding seen in the abdomen and pelvis as described above. 5. Findings were discussed with Yancy Jones at 2:47 p.m. on on 08/21/2023. RADIATION DOSE DELIVERED: Total DLP DATA REPOSITORY: All CT scans at this facility are submitted to the National Radiology Data Registry (NRDR) Dose Index Registry (DIR) with the [employer] (A[employer]). RADIATION OPTIMIZATION: All CT scans at this facility use at least one of these dose optimization te chniques: automated exposure control; mA and/or kV adjustment per patient size (includes targeted exa ms where dose is matched to clinical indication); or iterative reconstruction.
[2023-08-21] MEDS: Aspirin 81 MG CHEW 243 MG CH (12:39)
--- NOTE | 2023-08-21 12:39 | W.ED.GENAD ---
Discharge Plan Disposition Patient Disposition: Transfer-Acute Inpatient Care Specific Acute Inpt Facility: Other Discharge Details Clinical Impression: Septic shock, Pneumonia Primary Care Provider: Jerry Chen ED Provider: Jeane Swenson Home Meds and New Rx's Prescriptions: No Action latanoprost 0.005 % Drops 1 drp ophthalmic (eye) DAILY terbinafine HCl 1 % Cream 1 applic TOPICAL PRN PRN atorvastatin 80 mg Tablet 80 mg PO DAILY glipizide 10 mg Tablet 10 mg PO BID metoprolol succinate 100 mg Tablet Extended Release 24 Hr 150 mg PO DAILY dextroamphetamine-amphetamine [Adderall XR] 20 mg Capsule,Extended Release 24hr 20 mg PO DAILY metformin 1,000 mg Tablet 2,000 mg PO DAILY nitroglycerin 0.4 mg Tablet, Sublingual 0.4 mg sublingual PRN PRN folic acid 1 mg Tablet 1 mg PO DAILY lisinopril 40 mg Tablet 40 mg PO DAILY cholecalciferol (vitamin D3) 25 mcg (1,000 unit) Capsule 25 mcg PO DAILY duloxetine 60 mg Capsule,Delayed Release(Dr/Ec) 120 mg PO DAILY rivaroxaban 20 mg Tablet 20 mg PO DAILY Ozempic 1 mg/dose (2 mg/1.5 mL) Pen Injector 1 mg SUBCUT QWEEK Discharge Data Discharge Date/Time-TO BE ENTERED AT DEPARTURE: 08/21/23 19:29 Medical Decision Making <Yancy Jones NP - Last Filed: 08/25/23 11:25> 58-year-old male presents to the ER with a chief complaint of right-sided chest pain, which increased yesterday and today. Patient reports diaphoresis. He did have 1 episode of vomiting yesterday. He does have a history of PEs he is on Xarelto he is not on aspirin. He does have a history of significant GI history including a perforation of his colon which she has been followed for or seen at [facility]. Also has a history of coronary artery disease ADHD and glaucoma and obesity. Hypertension type 2 diabetes and an NSTEMI. He does have some tachycardia upon arrival, does have some lower extremity edema 3+ bilaterally greater + on the left. Does report that he has had DVT's in his lower legs in the past. He states that this feels just like his previous pulmonary embolism. Cardiac work-up ordered including EKG CBC CMP serial troponins, PT PTT lipase CT chest rule out PE abdomen/pelvis with contrast pending labs. Differential diagnosis includes but not limited to CAD, PR, pneumonia, PE, complication with surgery, sepsis leukocytosis with a count of 17.64, neutrophils 15.54 left shift. Lactate ordered, Blood cultures x 2 ordered and are pending 1326: Lactate 2.6 sodium 131, chloride 96 creatinine 1.7 GFR 45, glucose 240 mag slightly low at 1.4 lipase 94 which is also elevated. Broad-spectrum antibiotic ordered Rocephin and Zosyn. At this time pending CT chest abdomen pelvis, initial troponin within normal limits. Blood pressure 91/40 with a MAP of 56 however upon entering room patient does have his arm up over the railing, will closely observe. Repeat blood pressure is 92/41. 1421: Normal saline 1 L up at this time which was changed to wide open, Discussed possible admission with patient who verbalizes understanding is in agreement with plan. He did tell me that he did not take his Lasix this morning and that sometimes he does not remember to take his medications. Magnesium 1 g IV piggyback ordered for hypomagnesemia. 1420: Spoke with Dr. Lloyd with hospitalist regarding patient case and details.Awaiting improvement in BP to accept, 1447: BP 87/38 2nd liter NS being infused now. will consider Nor-epinephrine. 1500: norepinephrine drip ordered at 5 mics per minute we will titrate for blood pressure, at this time we have no ICU beds. 1502: [facility] transfer center called for transfer request, awaiting call back. 1510, blood pressure improved to 105/70 At this time blood pressure 120/1968 heart rate 105, care is to be handed off to DAJUAN Liang pending transfer and for sepsis due to right middle upper lobe pneumonia. Care accepted and transition from at 1600 Patient is alert and oriented, he is on 5 mcg of norepinephrine infusion he received 2 L out of the 4 L of sepsis bolus, we could adjust for ideal body weight, however patient has not showing any evidence of pulmonary edema and I think it is reasonable to continue fluids at this time His blood pressure on reassessment is 120/68, will discontinue norepinephrine at this time and give another liter of LR over 2 hours [facility] was agreeable to accepting the patient as we do not have capacity secondary to lack of ICU care However patient would prefer [facility] and so Dr Guthrie [facility] at the [facility] has accepted patient, he is aware he will likely need stepdown status secondary to sepsis and pneumonia Patient is stable here, of note, he has been off norepinephrine now for 1 hour and has pressure remains 110/59 with a stable MAP 71, will continue to hold pressors Patient will need ALS transport secondary to sepsis, pneumonia, and is agreeable to transport He is full CODE STATUS He has not required oxygen here Medical Records Medical records reviewed: Yes I reviewed the patient's medical records. Lab Data Lab results reviewed: Yes I reviewed the patient's lab results. Labs: 08/21/23 13:17 Blood Blood Culture - Pending 08/21/23 13:10 Blood Blood Culture - Pending Laboratory Tests Range/Units 08/21/23 08/21/23 08/21/23 12:32 12:32 12:59 WBC (4.4-10.8) 10^3/uL 17.64 H RBC (4.36-5.78) 10^6/uL 4.18 L Hgb (13.5-17.5) g/dL 13.9 Hct (40.0-50.0) % 41.7 MCV (80-95) fL 100 H MCH (27.0-33.0) pg 33.3 H MCHC (32.0-36.0) % 33.3 RDW (11.8-14.1) % 13.6 Plt Count (130-400) 10^3/uL 145 MPV (8.0-11.0) fL 9.6 Immature Gran % 0.9 Neutrophils % 88.1 Lymphocytes % 6.5 Monocytes % 4.1 Eosinophils % 0.1 Basophils % 0.3 Nucleated RBC % (0.0-0.3) % 0.0 Absolute Neutrophils (1.2-6.7) 10^3/uL 15.54 H Absolute Lymphocytes (1.2-3.4) 10^3/uL 1.15 L Absolute Monocytes (0.1-0.8) 10^3/uL 0.72 Absolute Eosinophils (0.0-0.7) 10^3/uL 0.02 Absolute Basophils (0.0-0.2) 10^3/uL 0.05 PT (9.1-11.1) sec 12.9 H INR (0.9-1.1) 1.3 H APTT (23.6-32.8) sec 34.8 H VBG Lactate (0.6-1.4) mmol/L 2.6 H* Sodium (136-145) mmol/L 131 L Potassium (3.5-5.1) mmol/L 4.2 Chloride (98-107) mmol/L 96 L Carbon Dioxide (21.0-32.0) mmol/L 24.5 Anion Gap (3-11) mmol/L 10.5 BUN (7-18) mg/dL 18 Creatinine (0.70-1.30) mg/dL 1.7 H Est GFR (CKD-EPI 2020) (mL/min/1.73m2) 45.58 Glucose (74-106) mg/dL 240 H Calcium (8.5-10.1) mg/dL 8.8 Magnesium (1.8-2.4) mg/dL 1.4 L Total Bilirubin (0.2-1.0) mg/dL 1.4 H AST (15-37) U/L 11 L ALT (16-63) U/L 21 Alkaline Phosphatase (46-116) U/L 76 Troponin I (<or=60) ng/L < 50 NT-Pro-B Natriuret Pep (<300) pg/mL 202 Total Protein (6.4-8.2) g/dL 7.8 Albumin (3.4-5.0) g/dL 2.9 L Lipase (16-77) U/L 94 H Cancelled COVID-19 Source Range/Units 08/21/23 14:39 WBC (4.4-10.8) 10^3/uL RBC (4.36-5.78) 10^6/uL Hgb (13.5-17.5) g/dL Hct (40.0-50.0) % MCV (80-95) fL MCH (27.0-33.0) pg MCHC (32.0-36.0) % RDW (11.8-14.1) % Plt Count (130-400) 10^3/uL MPV (8.0-11.0) fL Immature Gran % Neutrophils % Lymphocytes % Monocytes % Eosinophils % Basophils % Nucleated RBC % (0.0-0.3) % Absolute Neutrophils (1.2-6.7) 10^3/uL Absolute Lymphocytes (1.2-3.4) 10^3/uL Absolute Monocytes (0.1-0.8) 10^3/uL Absolute Eosinophils (0.0-0.7) 10^3/uL Absolute Basophils (0.0-0.2) 10^3/uL PT (9.1-11.1) sec INR (0.9-1.1) APTT (23.6-32.8) sec VBG Lactate (0.6-1.4) mmol/L Sodium (136-145) mmol/L Potassium (3.5-5.1) mmol/L Chloride (98-107) mmol/L Carbon Dioxide (21.0-32.0) mmol/L Anion Gap (3-11) mmol/L BUN (7-18) mg/dL Creatinine (0.70-1.30) mg/dL Est GFR (CKD-EPI 2020) (mL/min/1.73m2) Glucose (74-106) mg/dL Calcium (8.5-10.1) mg/dL Magnesium (1.8-2.4) mg/dL Total Bilirubin (0.2-1.0) mg/dL AST (15-37) U/L ALT (16-63) U/L Alkaline Phosphatase (46-116) U/L Troponin I (<or=60) ng/L NT-Pro-B Natriuret Pep (<300) pg/mL Total Protein (6.4-8.2) g/dL Albumin (3.4-5.0) g/dL Lipase (16-77) U/L COVID-19 Source Nasal/Nares <DAJUAN Liang - Last Filed: 08/21/23 19:42> 58-year-old male presents to the ER with a chief complaint of right-sided chest pain, which increased yesterday and today. Patient reports diaphoresis. He did have 1 episode of vomiting yesterday. He does have a history of PEs he is on Xarelto he is not on aspirin. He does have a history of significant GI history including a perforation of his colon which she has been followed for or seen at [facility]. Also has a history of coronary artery disease ADHD and glaucoma and obesity. Hypertension type 2 diabetes and an NSTEMI. He does have some tachycardia upon arrival, does have some lower extremity edema 2+ bilaterally 3+ on the left. Does report that he has had PEs in his lower legs in the past. He states that this feels just like his previous pulmonary embolism. Cardiac work-up ordered including EKG CBC CMP serial troponins, PT PTT lipase CT chest rule out PE abdomen/pelvis with contrast pending labs. Differential diagnosis includes but not limited to CAD, PR, pneumonia, PE, complication with surgery, sepsis leukocytosis with a count of 17.64, neutrophils 15.54 left shift. Lactate ordered 1326: Lactate 2.6 sodium 131, chloride 96 creatinine 1.7 GFR 45, glucose 240 mag slightly low at 1.4 lipase 94 which is also elevated. Broad-spectrum antibiotic ordered Rocephin and Zosyn. At this time pending CT chest abdomen pelvis, initial troponin within normal limits. Blood pressure 91/40 with a MAP of 56 however upon entering room patient does have his arm up over the railing, will closely observe. Repeat blood pressure is 92/41. 1421: Normal saline 1 L up at this time which was changed to wide open, Discussed possible admission with patient who verbalizes understanding is in agreement with plan. He did tell me that he did not take his Lasix this morning and that sometimes he does not remember to take his medications. Magnesium 1 g IV piggyback ordered for hypomagnesemia. 1420: Spoke with Dr. Lloyd with hospitalist regarding patient case and details.Awaiting improvement in BP to accept, 1447: BP 87/38 2nd liter NS being infused now. will consider Nor-epinephrine. 1500: norepinephrine drip ordered at 5 mics per minute we will titrate for blood pressure, at this time we have no ICU beds. 1502: [facility] transfer center called for transfer request, awaiting call back. 1510, blood pressure improved to 105/70 At this time blood pressure 120/1968 heart rate 105, care is to be handed off to DAJUAN Liang pending transfer and for sepsis due to right middle upper lobe pneumonia. Care accepted and transition from at 1600 Patient is alert and oriented, he is on 5 mcg of norepinephrine infusion he received 2 L out of the 4 L of sepsis bolus, we could adjust for ideal body weight, however patient has not showing any evidence of pulmonary edema and I think it is reasonable to continue fluids at this time His blood pressure on reassessment is 120/68, will discontinue norepinephrine at this time and give another liter of LR over 2 hours [facility] was agreeable to accepting the patient as we do not have capacity secondary to lack of ICU care However patient would prefer [facility] and so Dr Guthrie ICU at the [facility] has accepted patient, he is aware he will likely need stepdown status secondary to sepsis and pneumonia Patient is stable here, of note, he has been off norepinephrine now for 1 hour and has pressure remains 110/59 with a stable MAP 71, will continue to hold pressors Patient will need ALS transport secondary to sepsis, pneumonia, and is agreeable to transport He is full CODE STATUS He has not required oxygen here HPI <Yancy Jones NP - Last Filed: 08/25/23 11:25> General Mode of arrival: ambulatory. Date/Time Provider Initiated Documentation: 08/21/23 12:25. Limitations to Documentation: no limitations. Information obtained by: patient, RN notes reviewed and old records reviewed. History of Present Illness described as moderate, with intensity rated at 7. Quality is described as sharp, and is localized to the chest and right. Patient reports no radiation. and it has been constant. Patient notes diaphoresis, nausea/vomiting, shortness of breath and other (Tacycardia). Patient did receive the following treatments prior to arrival, NSAID (Tylenol) HPI Narrative: 58-year-old male presents to the ER with chief complaint of right-sided chest wall pain last couple of days. He does have a past medical history of type 2 diabetes, CAD with 5 stents, hypertension hyperlipidemia, PE and DVT, obesity. Related Data Home Medications Medication Instructions Recorded Confirmed atorvastatin 80 mg tablet 80 mg PO DAILY 01/15/23 08/21/23 cholecalciferol (vitamin D3) 25 25 mcg PO DAILY 01/15/23 08/21/23 mcg (1,000 unit) capsule dextroamphetamine-amphetamine ER 20 mg PO DAILY 01/15/23 08/21/23 20 mg 24hr capsule,extend release (Adderall XR) duloxetine 60 mg capsule,delayed 120 mg PO DAILY 01/15/23 08/21/23 release folic acid 1 mg tablet 1 mg PO DAILY 01/15/23 08/21/23 glipizide 10 mg tablet 10 mg PO BID 01/15/23 08/21/23 latanoprost 0.005 % eye drops 1 drp ophthalmic (eye) DAILY 01/15/23 08/21/23 lisinopril 40 mg tablet 40 mg PO DAILY 01/15/23 08/21/23 metformin 1,000 mg tablet 2,000 mg PO DAILY 01/15/23 08/21/23 metoprolol succinate 100 mg 150 mg PO DAILY 01/15/23 08/21/23 tablet,extended release 24 hr nitroglycerin 0.4 mg sublingual 0.4 mg sublingual PRN PRN 01/15/23 08/21/23 tablet rivaroxaban 20 mg tablet 20 mg PO DAILY 01/15/23 08/21/23 semaglutide 1 mg/dose (2 mg/1.5 1 mg subcut QWEEK 01/15/23 08/21/23 mL) subcutaneous pen injector (Ozempic) terbinafine HCl 1 % topical cream 1 applic topical PRN PRN 01/15/23 08/21/23 Allergies Allergy/AdvReac Type Severity Reaction Status Date / Time ciprofloxacin AdvReac Mild Itching Unverified 08/21/23 14:24 General Stated Complaint: Nausea/Vomit/Diar ALY: 3 Review of Systems <Yancy Jones NP - Last Filed: 08/25/23 11:25> All systems reviewed & are unremarkable except as noted in HPI and below Constitutional Constitutional: Denies chills, Reports excessive sweating and Denies fever(s) Cardiovascular Cardiovascular: Reports chest pain, Reports chest pain at rest, Reports rapid heart rate, Reports pedal edema, Reports edema and Reports dyspnea Respiratory Respiratory: Reports dyspnea Gastrointestinal Gastrointestinal: Reports abdominal pain and Reports vomiting Endocrine Endocrine: Reports excessive sweating PFSH <Yancy Jones NP - Last Filed: 08/25/23 11:25> All Active Problems (Updated 08/21/23 @ 19:42 by DAJUAN Liang) Pneumonia (Acute) Septic shock (Acute) Smoker (Acute) Candidal intertrigo (Acute) Type 2 diabetes mellitus (Acute) Hypertension (Chronic) Acute non-ST elevation myocardial infarction (NSTEMI) (Acute) Medical History History of pulmonary embolism ADHD Glaucoma Coronary artery disease Perforation of colon as colonoscopy complication Surgical History S/P laparotomy multiple surgeries after perforation Family History Brother , multiple older brothers Heart disease Mother Heart disease Social History Smoking/Tobacco Use Status: Current every day Tobacco Type: cigarettes Counseling given: provider counseling, support medications and counseling >3 minutes Smoking risk assessment performed?: Yes Alcohol Intake: current Alcohol Intake frequency: 0-2 drinks per day Substance use type: does not use Do you feel safe at home: Yes Do you feel safe in your relationship?: Yes Additional Social history: Lives with GF Valentine and dog. 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 [employer] <Yancy Jones NP - Last Filed: 08/25/23 11:25> Vital Signs Vital signs: Vital Signs Temperature 36.5 C 08/21/23 12:21 Pulse 119 H 08/21/23 12:21 Respiratory Rate 18 08/21/23 12:21 Blood Pressure 150/64 H 08/21/23 12:21 Pulse Oximetry 96 08/21/23 12:21 Temperature 36.5 C 08/21/23 12:21 Temperature Source Skin 08/21/23 12:21 Pulse 119 H 08/21/23 12:21 Respiratory Rate 18 08/21/23 12:21 Respiratory Effort Short of Breath 08/21/23 12:25 Blood Pressure 150/64 H 08/21/23 12:21 Blood Pressure Position Supine 08/21/23 12:21 Pulse Oximetry 96 08/21/23 12:21 Oxygen Delivery Method Room Air 08/21/23 12:21 Oxygen Flow Rate 0 08/21/23 12:21 Pain Level 9 08/21/23 12:21 Critical Care Time <Yancy Jones NP - Last Filed: 08/25/23 11:25> Critical Care Time Critical Care Time: Yes <DAJUAN Liang - Last Filed: 08/21/23 19:42> Critical Care Time Attestation: Approximate 45 minutes of critical care time was performed secondary to pneumonia with septic shock Lactic acidosis Right upper lobe infiltrate, requiring telemetry monitoring, norepinephrine infusion, 2 large-bore IVs, diagnostic lab interpretation, and ICU level of care Sign Out <Yancy Jones NP - Last Filed: 08/25/23 11:25> Sign Out Data: Sign Out Comment: Patient to be signed out pending transfer to [facility] for sepsis pneumonia. Patient is on a nor-epi drip at 5 mics a minute. Last updated by Yancy Jones NP at 08/21/23 16:04
[2023-08-21 12:42] LABS: Abs Immature Grans 0.15 10^3/uL (0.0-0.06); Absolute Basophil Count 0.05 10^3/uL (0.0-0.2); Absolute Monocyte Count 0.72 10^3/uL (0.1-0.8); Basophils % 0.3; Eosinophils % 0.1; HCT 41.7 % (40.0-50.0); HGB 13.9 g/dL (13.5-17.5); Immature Grans % 0.9; Lymphocytes % 6.5; MCH 33.3 pg (27.0-33.0); MCHC 33.3 % (32.0-36.0); MCV 100 fL (80-95); MPV 9.6 fL (8.0-11.0); Monocytes % 4.1; Neutrophils % 88.1; Platelet Count 145 10^3/uL (130-400); RBC 4.18 10^6/uL (4.36-5.78); RDW 13.6 % (11.8-14.1); RDW-SD 50.1 fL; WBC 17.64 10^3/uL (4.4-10.8)
[2023-08-21 12:45] LABS: Absolute Eosinophil Count 0.02 10^3/uL (0.0-0.7); Absolute Lymphocyte Count 1.15 10^3/uL (1.2-3.4); Absolute Neutrophil Count 15.54 10^3/uL (1.2-6.7)
[2023-08-21 12:59] LABS: ALT 21 U/L (16-63); AST 11 U/L (15-37); Albumin 2.9 g/dL (3.4-5.0); Alkaline Phosphatase 76 U/L (46-116); Anion Gap 10.5 mmol/L (3-11); BUN 18 mg/dL (7-18); Bilirubin, Total 1.4 mg/dL (0.2-1.0); CO2 24.5 mmol/L (21.0-32.0); CREATININE 1.7 mg/dL (0.70-1.30); Calcium 8.8 mg/dL (8.5-10.1); Chloride 96 mmol/L (98-107); Estimated GFR 45.58 (mL/min/1.73m2); Glucose 240 mg/dL (74-106); Lipase 94 U/L (16-77); Magnesium 1.4 mg/dL (1.8-2.4); Potassium 4.2 mmol/L (3.5-5.1); Sodium 131 mmol/L (136-145); Total Protein 7.8 g/dL (6.4-8.2); Troponin I < 50 ng/L (<or=60)
[2023-08-21 13:06] LABS: INR 1.3 (0.9-1.1); PTT Activated 34.8 sec (23.6-32.8); Prothrombin Time 12.9 sec (9.1-11.1)
[2023-08-21 13:08] LABS: Lactate 2.6 mmol/L (0.6-1.4)
[2023-08-21] MEDS: Normal Saline - Diluent 50 ML VIAL IJ (13:30)
[2023-08-21] MEDS: Normal Saline Flush 10 ML SYR IVP (13:30)
[2023-08-21] MEDS: Omnipaque 350 MG/ML 500 ML BTL-Imaging package 100 ML IJ (13:31)
[2023-08-21] MEDS: PIPERACILLIN/TAZO 3.375 GM in Normal Saline 50 ML IVPB (13:47)
[2023-08-21] MEDS: Normal Saline 1,000 ML 250 ML IV (13:47)
[2023-08-21 13:57] LABS: NT-proBNP 202 pg/mL (<300)
[2023-08-21] MEDS: cefTRIAXone 2 GM/50 ML BAG IVPB (14:19)
[2023-08-21 14:43] LABS: Source Nasal/Nares
[2023-08-21] MEDS: Normal Saline 1,000 ML 1000 ML IV (14:50)
[2023-08-21] MEDS: ACETAMINOPHEN 1,000 MG/100 ML BTL 400 MG IVPB (14:51)
[2023-08-21] MEDS: Norepinephrine in D5W 8 MG/250 ML BAG 9.375 MG IV (15:03)
[2023-08-21] MEDS: MAGNESIUM SULFATE 1 GM/100 ML BAG IVPB (15:04)
[2023-08-21 15:15] LABS: COVID-19 PCR Negative (Negative)
[2023-08-21] MEDS: Normal Saline 500 ML IV (15:46)
[2023-08-21 15:58] LABS: Troponin I < 50 ng/L (<or=60)
[2023-08-21] MEDS: Lactated Ringers 1,000 ML 1000 ML IV (16:35)
[2023-08-21 16:38] LABS: Bilirubin Negative (Negative); Blood Trace-intact (Negative); Clarity Clear (Clear); Glucose Negative (Negative); Ketones Negative (Negative); Leukocyte Esterase Negative (Negative); Nitrite Negative (Negative); Urobilinogen 0.2 mg/dL (Up to 0.2); pH 5.5 (5-8)
[2023-08-21 16:49] LABS: Epithelial Cells Rare HPF (Negative); RBC 0-2 HPF (0-2)
[2023-08-21 16:50] LABS: Bacteria Few HPF (Negative); C & S Indicated? Yes; Casts Negative LPF (Negative); Crystals Negative HPF (Negative); Mucus Negative (Negative)
[2023-08-21 18:22] LABS: Lactate 2.2 mmol/L (0.6-1.4)
[2023-08-21 19:22] LABS: COVID-19 PCR Negative (Negative); Influenza A PCR Negative (Negative); Influenza B PCR Negative (Negative); RSV PCR Negative (Negative)
[2023-08-21 19:29] LABS: Source NASOPHARYNX
--- NOTE | 2023-08-22 06:07 | NUR.NOTE ---
Positive blood culture result called to ED from Lab. Patient transferred to [facility]. Test result called to [facility]. Copy of test result faxed to [phone].Nursing Note:
--- NOTE | 2023-08-24 08:40 | NUR.NOTE ---
Accessed pt chart for name of accepting physician for transfer paperwork. None documented. Nursing Note:
== END 2023-08-21 19:29 | disposition short-term general hospital (02) ==
PROVIDERS: Registered Nurse Emergency; Emergency Provider Physician Assistant; PCP Family Medicine
DX: J18.9 Pneumonia, unspecified organism (principal); R65.21 Severe sepsis with septic shock; E83.42 Hypomagnesemia; Z95.5 Presence of coronary angioplasty implant and graft; Z20.822 Contact with and (suspected) exposure to COVID-19; I25.10 Atherosclerotic heart disease of native coronary artery without angina pectoris
CPT/HCPCS: 36415; 71275; 74177; 80053; 83690; 87040; 87077; 87635; 87637; 93005; 96365; 96366; 96367; 96368; 96375; 99285; 81003; 81015; 83605; 83735; 83880; 84484; 85025; 85610; 85730; 87086; 93010; J0131; J2543; J3475

== ENCOUNTER 2023-10-15 22:30 | Emergency (ER) | payer OTHER, SELFPAY ==
--- NOTE | 2023-10-15 22:31 | W.ED.GENAD ---
HPI General Mode of arrival: ambulatory. Date/Time Provider Initiated Documentation: 10/15/23 22:31. Limitations to Documentation: no limitations. Information obtained by: patient. HPI Narrative: This is a 58-year-old male with history of type 2 diabetes, hypertension NSTEMI who does not check his blood sugar often and avoids going to the doctor's is necessary, who tells me he was advised to come in by family members today. He presents with pain and swelling under the left breast which has been draining intermittently. The pain began several weeks ago and is associated with tenderness and swelling. He tells me that it began draining over the past 24 hours. He said it drained a lot, but is unable to quantitate the amount. The pain is 1-2 out of 10 is aggravated with palpation and movement. He has had chills but no documented fever. [facility] He does have a history of pulmonary embolus and is on Eliquis. He also tells me he has a history of ADHD. He cannot recall the date of his last tetanus immunization. He does have a local physician but has not seen them for this complaint. He also has a history of a colonic perforation and a ventral hernia secondary to his previous abdominal surgeries. Related Data Home Medications Medication Instructions Recorded Confirmed atorvastatin 80 mg tablet 80 mg PO DAILY 01/15/23 10/17/23 cholecalciferol (vitamin D3) 25 25 mcg PO DAILY 01/15/23 10/17/23 mcg (1,000 unit) capsule dextroamphetamine-amphetamine ER 20 mg PO DAILY 01/15/23 10/17/23 20 mg 24hr capsule,extend release (Adderall XR) duloxetine 60 mg capsule,delayed 120 mg PO DAILY 01/15/23 10/17/23 release folic acid 1 mg tablet 1 mg PO DAILY 01/15/23 10/17/23 glipizide 10 mg tablet 10 mg PO BID 01/15/23 10/17/23 latanoprost 0.005 % eye drops 1 drp ophthalmic (eye) DAILY 01/15/23 10/17/23 lisinopril 40 mg tablet 40 mg PO DAILY 01/15/23 10/17/23 metformin 1,000 mg tablet 2,000 mg PO DAILY 01/15/23 10/17/23 metoprolol succinate 100 mg 150 mg PO DAILY 01/15/23 10/17/23 tablet,extended release 24 hr nitroglycerin 0.4 mg sublingual 0.4 mg sublingual PRN PRN 01/15/23 10/17/23 tablet rivaroxaban 20 mg tablet 20 mg PO DAILY 01/15/23 10/17/23 semaglutide 1 mg/dose (2 mg/1.5 1 mg subcut QWEEK 01/15/23 10/17/23 mL) subcutaneous pen injector (Ozempic) terbinafine HCl 1 % topical cream 1 applic topical PRN PRN 01/15/23 10/17/23 clindamycin HCl 300 mg capsule 300 mg PO Q6H #40 caps 10/16/23 10/17/23 Previous Rx's Medication Instructions Recorded clindamycin HCl 300 mg capsule 300 mg PO Q6H #40 caps 10/16/23 Allergies Allergy/AdvReac Type Severity Reaction Status Date / Time ciprofloxacin AdvReac Mild Itching Unverified 10/17/23 11:56 General ALY: 3 Review of Systems Narrative: see hpi Exam Narrative Exam Narrative: The patient is a well-developed well-nourished male who is mildly hypertensive, nontoxic and afebrile. He is alert and oriented x 4. His GCS is 15. He was slightly tachycardic on arrival. Const General: cooperative, healthy appearing, comfortable, no acute distress, well developed, well groomed, not diaphoretic and well hydrated Nutritional Appearance: well nourished and obese Orientation: alert, awake and oriented x3 [facility] Head: normal to inspection, normocephalic and atraumatic Ears: hearing grossly normal bilaterally and external ears normal General nose exam: external nose normal, nares normal and no nasal discharge Face and sinus: normal facial exam and face symmetric Mouth: lip normal, moist mucous membranes and other (Normal phonation. The patient is handling secretions.) Eyes General: appearance normal, both eyes and all related structures Eyelids: eyelids normal Conjunctivae: conjunctivae normal Sclera: sclerae normal Cornea: corneas normal Pupils: PERRL EOM: EOM intact bilaterally and No nystagmus Neck Neck: normal visual inspection, full ROM, no lymphadenopathy, no meningeal signs, trachea midline and supple Lymphatic: no lymphadenopathy noted Chest Other: His chest has symmetric expansion. In the left chest wall medial and inferior to the left nipple in the medial aspect of the breast crease is a tender area approximately 4 cm in diameter draining purulent brownish fluid. There is no lymphangitis, subcutaneous emphysema present. The area is tender and slightly warm. There is no overlying cellulitis. He has symmetric expansion there is mild swelling which is localized around the area induration. There appears to be fluid which tracks medially and superiorly from the open areas. Resp Effort & Inspection: normal respiratory effort, able to speak in complete sentences, no audible wheezes, no nasal flaring, no respiratory distress, no retractions, no stridor, not tachypneic, no tracheal deviation, no use of accessory muscles, No prolonged expiratory phase and other (Normal inspiratory to expiratory ratio.) Auscultation: clear to auscultation bilaterally, no rales, no rhonchi, no wheezes and no rubs Tactile Fremitus: tactile fremitus absent Cardio Other: The patient has an irregular rate and rhythm. He is not tach or cardiac on my exam. His heart sounds are distant but he has no murmur rubs or gallops. No JVD. Mild peripheral edema. GI Other: His abdomen is protuberant. He has multiple well-healed surgical scars large ventral hernia. His abdomen is soft and nontender. He has normal active bowel sounds. Skin Other: His skin is warm and dry normal for ethnicity. There is no evidence of lymphangitis or chest wall cellulitis. Please see chest examination above for description of the abscess. Neuro General: patient alert, patient awake, patient oriented x3, moves all extremities, no meningeal signs, no focal motor deficits and CN's II-XI intact bilaterally Cranial Nerves: CN's II-XI intact bilaterally, PERRL, accommodation normal, EOM intact bilaterally, no nystagmus, facial strength normal, tongue midline, hearing normal and no nystagmus Cognition: normal cognition Speech: speech normal Gait: normal gait Motor: muscle tone normal throughout and strength 5/5 throughout Sensory Exam: no sensory deficits noted Extrem General: normal to inspection, full ROM, capillary refill normal, no clubbing, cyanosis or edema and no calf tenderness Psych Appearance: grossly normal Affect: normal affect Attitude: cooperative Thought Process: normal Thought Content: normal Insight: insight good Judgment: judgment good Other: The patient appears to have capacity make medical decisions. Course The patient was given IV fluids and 10 units of IV insulin with good response. He tolerated the Rocephin without allergic reaction. He received IV fluids. I counseled him on tracking his blood sugar and the importance of keeping a follow-up appointment with general surgery which I have requested for October 19. I have advised him to keep the wound covered for 2 days and then to remove the dressing and reapply a dressing. I have advised him that if the packing falls out he should wash the wound with dilute hydrogen peroxide and warm tap water to encourage drainage. I have advised him to return here if he develops any fevers chills dizziness or any other signs of worsening infection or sepsis. We have updated his tetanus immunization. I have advised him to take his antibiotics with probiotics as directed. I have advised him that a culture was obtained and would be resulted in 48 hours. The patient voiced understanding agreement with the discharge plan. All his questions and concerns were addressed prior to discharge. Due to voice recognition software, sound alike and misspelled words may be contained in the documentation. Procedures Abscess I/D Site: Chest (The left anterior chest wall just medial to and below the left nipple.) Side (if applicable): Left Sedation/analgesia: None Local Anesthetic: Lidocaine 1% Amount of anesthesia used (mL): 5 Technique: Incised with #11 Blade Amount of fluid expressed (mL): 7.5 Irrigation: Yes Packing used?: Plain Complications: Other (Prior to the procedure, verbal consent was obtained. The patient tolerated the procedure well. There were no complications. A culture was obtained.) Medical Decision Making This is a 4-year-old male with poorly controlled diabetes who avoids going to the doctor, and who was advised to come in by his friends and family members for a lesion on the left anterior chest wall. His symptoms began several weeks ago. He tells me he has had previous similar episodes which were not as severe which were attributed to ingrown hairs. He presents with a abscess to the anterior subcutaneous chest wall which spontaneously drained today. He does have a history of atrial fibrillation and STEMI and type 2 diabetes. He does not check his blood sugar every day. When I asked him if he needed me to write for his fingersticks and glucometer he declined. [facility] but does have a local physician. He sees him frequently. He has not sought care for the abscess up to this point. He does not appear toxic or septic. Nursing notes have documented heart rate of 120 but he does have an history of atrial fibrillation and his rate at the bedside and on my exam is in the 90s. My plan is to obtain IV access and to check his blood sugar. We are unable to obtain serum acetone from the lab but we can check his lactate, blood sugar and as the lab suggested check for urine ketones. He does not appear tachypneic and does not appear to be in DKA. There is no fruity odor to his breath. My plan will be to check a CBC to look at leukocytosis and left shift. We will check a comprehensive metabolic panel to determine his electrolytes, bicarb and serum glucose. Will also evaluate his renal function because she has a history of mild renal insufficiency. Will check his liver function test. I will start him on normal saline and check a fingerstick to guide treatment initially. If he is significantly hyperglycemic it will inhibit his ability to fight infection. I will give him a dose of IV antibiotics and update his tetanus status. My plan will be to I&D the abscess, send a culture and likely discharge him home on antibiotics with surgical follow-up. The patient voices understanding and agreement with the plan. Differential Diagnosis Differential Diagnosis: Chest wall abscess, partially drained, hyperglycemia, DKA Medical Records Medical records reviewed: Yes I reviewed the patient's medical records. Quality:SDOH Health Related Social Needs: Health related social needs risk of homeless, material hardship Health related social needs details patient followed by the [facility], poor control of DM, reluctant to seek medical treatment Health related social needs details: patient followed by the [facility], poor control of DM, reluctant to seek medical treatment [facility] All Active Problems Mild renal insufficiency (Acute) Acute hyperglycemia (Acute) Acidosis, lactic (Acute) Abscess of skin and subcutaneous tissue (Acute) Smoker (Acute) Candidal intertrigo (Acute) Type 2 diabetes mellitus (Acute) Hypertension (Chronic) Acute non-ST elevation myocardial infarction (NSTEMI) (Acute) Medical History History of pulmonary embolism ADHD Glaucoma Coronary artery disease Perforation of colon as colonoscopy complication Surgical History S/P laparotomy multiple surgeries after perforation Family History Brother , multiple older brothers Heart disease Mother Heart disease Social History Smoking/Tobacco Use Status: Current every day Tobacco Type: cigarettes Counseling given: provider counseling, support medications and counseling >3 minutes Smoking risk assessment performed?: Yes Alcohol Intake: current Alcohol Intake frequency: 0-2 drinks per day Substance use type: does not use Housing: house Do you feel safe at home: Yes Do you feel safe in your relationship?: Yes Additional Social history: Lives with GF Valentine and dog. 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 [employer] Discharge Plan Disposition Patient Disposition: Home Discharge Details Clinical Impression: Abscess of skin and subcutaneous tissue, Type 2 diabetes mellitus, Acidosis, lactic, Acute hyperglycemia, Mild renal insufficiency Primary Care Provider: Jerry Chen ED Provider: Hattie Gilliam Home Meds and New Rx's Prescriptions: New clindamycin HCl 300 mg capsule 300 mg PO Q6H Qty: 40 0RF No Action latanoprost 0.005 % Drops 1 drp ophthalmic (eye) DAILY terbinafine HCl 1 % Cream 1 applic TOPICAL PRN PRN atorvastatin 80 mg Tablet 80 mg PO DAILY glipizide 10 mg Tablet 10 mg PO BID metoprolol succinate 100 mg Tablet Extended Release 24 Hr 150 mg PO DAILY dextroamphetamine-amphetamine [Adderall XR] 20 mg Capsule,Extended Release 24hr 20 mg PO DAILY metformin 1,000 mg Tablet 2,000 mg PO DAILY nitroglycerin 0.4 mg Tablet, Sublingual 0.4 mg sublingual PRN PRN folic acid 1 mg Tablet 1 mg PO DAILY lisinopril 40 mg Tablet 40 mg PO DAILY cholecalciferol (vitamin D3) 25 mcg (1,000 unit) Capsule 25 mcg PO DAILY duloxetine 60 mg Capsule,Delayed Release(Dr/Ec) 120 mg PO DAILY rivaroxaban 20 mg Tablet 20 mg PO DAILY Ozempic 1 mg/dose (2 mg/1.5 mL) Pen Injector 1 mg SUBCUT QWEEK Discharge Instructions Instructions: Abscess (ED), Diabetic Hyperglycemia (ED) Additional Instructions: 1. You should receive a call from the general surgery clinic for follow-up appointment on Thursday the . 2. Start clindamycin 300 mg every 6 hours for 10 days. Eat foods that contain probiotics such as kombucha or Mal[place]ian yogurt while on antibiotics. Alternatively they were advised to ask their pharmacist for an [id number] probiotic to take while taking antibiotics. 3. A culture was obtained and will be resulted in 48 hours. Return here for any new or worrisome symptoms such as fever chills increasing pain or any concerns. 4. Call your primary care provider make a follow-up appointment. You should have your renal function rechecked. 5. You should check your blood sugar 4 times a day before meals and before bed. Your infection will not improve unless your blood sugars in better control. Discharge Data Discharge Date/Time-TO BE ENTERED AT DEPARTURE: 10/16/23 01:35 Discharge Physician: Hattie Gilliam
[2023-10-15 22:32] VITALS: BP 168/94; PULSE 120; RESP 18; TEMP 36.4
[2023-10-15 23:12] LABS: Abs Immature Grans 0.06 10^3/uL (0.0-0.06); Absolute Eosinophil Count 0.16 10^3/uL (0.0-0.7); Absolute Lymphocyte Count 2.35 10^3/uL (1.2-3.4); Absolute Monocyte Count 0.92 10^3/uL (0.1-0.8); Basophils % 0.3; Eosinophils % 1.4; HCT 41.6 % (40.0-50.0); Immature Grans % 0.5; MCH 33.3 pg (27.0-33.0); MCHC 33.7 % (32.0-36.0); MCV 99 fL (80-95); MPV 9.7 fL (8.0-11.0); Monocytes % 7.8; Platelet Count 212 10^3/uL (130-400); RDW 12.8 % (11.8-14.1); RDW-SD 46.3 fL; WBC 11.77 10^3/uL (4.4-10.8)
[2023-10-15 23:13] LABS: Absolute Basophil Count 0.04 10^3/uL (0.0-0.2); Absolute Neutrophil Count 8.24 10^3/uL (1.2-6.7); Lactate 2.8 mmol/L (0.6-1.4)
[2023-10-15] MEDS: cefTRIAXone 2 GM/50 ML BAG IVPB (23:13)
[2023-10-15] MEDS: Tetanus & Diphtheria Tox,ADULT 0.5 ML VIAL IM (23:14)
[2023-10-15] MEDS: Insulin REGULAR-Human 100 UNITS/ML UNIT 10 UNITS IV (23:16)
[2023-10-15 23:25] LABS: Anion Gap 11.1 mmol/L (3-11); BUN 16 mg/dL (7-18); CO2 24.9 mmol/L (21.0-32.0); CREATININE 1.5 mg/dL (0.70-1.30); Calcium 9.2 mg/dL (8.5-10.1); Chloride 98 mmol/L (98-107); Estimated GFR 52.97 (mL/min/1.73m2); Glucose 414 mg/dL (74-106); Potassium 4.2 mmol/L (3.5-5.1); Sodium 134 mmol/L (136-145)
[2023-10-16 00:35] LABS: Bilirubin Negative (Negative); Blood Negative (Negative); Clarity Clear (Clear); Glucose 500 mg/dL (Negative); Ketones Negative (Negative); Leukocyte Esterase Negative (Negative); Nitrite Negative (Negative); Urobilinogen 0.2 mg/dL (Up to 0.2)
--- NOTE | 2023-10-16 00:37 | NUR.NOTE ---
Nursing Note:late entry:::: pt comes to the ED c/o abscess under to left breast, he states that it has been there for several weeks, that it grew in size and that last night it opened and began to drain yellow thick fluid. the pt is insulin diabetic and is non-compliant with his meds or his diet. the pt wound draining and was irrigated and produced more drainage, thick yellow, wound culture taken prior to irrigation. pt given insulin, glucose done 1hr after and then after he received x1 L NS
[2023-10-16 00:40] LABS: Bacteria Rare HPF (Negative); C & S Indicated? No; Casts Negative LPF (Negative); Crystals Negative HPF (Negative); Epithelial Cells Rare HPF (Negative); Mucus Negative (Negative); RBC Negative HPF (0-2); WBC Negative HPF (0-5)
--- NOTE | 2023-10-16 10:25 | NUR.NOTE ---
Nursing Note: PT in need of follow up October 19 with surgery for subcutaneous abscess of chest wall. Anne, ED
== END 2023-10-16 01:35 | disposition home or self-care (01) ==
PROVIDERS: Emergency Provider Emergency Medicine Emergency Medical Services; PCP Family Medicine
DX: L02.213 Cutaneous abscess of chest wall (principal); E11.65 Type 2 diabetes mellitus with hyperglycemia; E87.20 Acidosis, unspecified; N28.9 Disorder of kidney and ureter, unspecified; I10 Essential (primary) hypertension; I25.2 Old myocardial infarction; Z79.84 Long term (current) use of oral hypoglycemic drugs; F17.210 Nicotine dependence, cigarettes, uncomplicated
CPT/HCPCS: 80048; 82805; 82962; 87077; 90714; 96365; 99284; 81003; 81015; 83605; 85025; 87070; 87186; 87205; J0696; J1815

== ENCOUNTER 2023-10-17 11:41 | Emergency (ER) | payer OTHER, SELFPAY ==
[2023-10-17] VITALS (9 sets, daily range): BP systolic 110–128; BP diastolic 42–67; PULSE 78–105; RESP 12–23; TEMP 36.9; O2SAT 90–98
[2023-10-17] MEDS: Normal Saline 1,000 ML 1000 ML IV (12:47)
[2023-10-17] MEDS: CLINDAMYCIN 600 MG/50 ML BAG 100 MG IVPB (12:48)
[2023-10-17 13:09] LABS: Abs Immature Grans 0.06 10^3/uL (0.0-0.06); Absolute Basophil Count 0.04 10^3/uL (0.0-0.2); Absolute Eosinophil Count 0.24 10^3/uL (0.0-0.7); Absolute Lymphocyte Count 2.23 10^3/uL (1.2-3.4); Absolute Monocyte Count 0.63 10^3/uL (0.1-0.8); Absolute Neutrophil Count 6.09 10^3/uL (1.2-6.7); Basophils % 0.4; Eosinophils % 2.6; HCT 40.1 % (40.0-50.0); HGB 13.6 g/dL (13.5-17.5); Immature Grans % 0.6; MCH 33.4 pg (27.0-33.0); MCHC 33.9 % (32.0-36.0); MCV 99 fL (80-95); MPV 9.9 fL (8.0-11.0); Monocytes % 6.8; Neutrophils % 65.6; Platelet Count 218 10^3/uL (130-400); RBC 4.07 10^6/uL (4.36-5.78); RDW 12.5 % (11.8-14.1); RDW-SD 45.6 fL; WBC 9.29 10^3/uL (4.4-10.8)
[2023-10-17 13:24] LABS: Anion Gap 11.2 mmol/L (3-11); BUN 13 mg/dL (7-18); CO2 24.8 mmol/L (21.0-32.0); CREATININE 1.5 mg/dL (0.70-1.30); Calcium 9.3 mg/dL (8.5-10.1); Chloride 103 mmol/L (98-107); Estimated GFR 52.97 (mL/min/1.73m2); Glucose 317 mg/dL (74-106); Potassium 4.1 mmol/L (3.5-5.1); Sodium 139 mmol/L (136-145)
--- NOTE | 2023-10-17 13:52 | NUR.NOTE ---
Referral faxed to [facility] requesting a visit on Thursday to follow up with a chest abscess with Diabetes.
[2023-10-17] MEDS: Clindamycin 150 MG CAP, 12 CAPS/BTL 450 MG PO (14:03)
--- NOTE | 2023-10-17 14:05 | W.ED.GENAD ---
HPI General Date/Time Provider Initiated Documentation: 10/17/23 11:45. HPI Narrative: This 58-year-old male presents with report of history of diabetes, hypertension, hyperlipidemia presents with report of abscess which patient feels is worsening to his left chest. States he status post drainage on morning of this week. Denies any fever or chills. Denies any shortness of breath. States secondary to the pain Related Data Home Medications Medication Instructions Recorded Confirmed atorvastatin 80 mg tablet 80 mg PO DAILY 01/15/23 10/17/23 cholecalciferol (vitamin D3) 25 25 mcg PO DAILY 01/15/23 10/17/23 mcg (1,000 unit) capsule dextroamphetamine-amphetamine ER 20 mg PO DAILY 01/15/23 10/17/23 20 mg 24hr capsule,extend release (Adderall XR) duloxetine 60 mg capsule,delayed 120 mg PO DAILY 01/15/23 10/17/23 release folic acid 1 mg tablet 1 mg PO DAILY 01/15/23 10/17/23 glipizide 10 mg tablet 10 mg PO BID 01/15/23 10/17/23 latanoprost 0.005 % eye drops 1 drp ophthalmic (eye) DAILY 01/15/23 10/17/23 lisinopril 40 mg tablet 40 mg PO DAILY 01/15/23 10/17/23 metformin 1,000 mg tablet 2,000 mg PO DAILY 01/15/23 10/17/23 metoprolol succinate 100 mg 150 mg PO DAILY 01/15/23 10/17/23 tablet,extended release 24 hr nitroglycerin 0.4 mg sublingual 0.4 mg sublingual PRN PRN 01/15/23 10/17/23 tablet rivaroxaban 20 mg tablet 20 mg PO DAILY 01/15/23 10/17/23 semaglutide 1 mg/dose (2 mg/1.5 1 mg subcut QWEEK 01/15/23 10/17/23 mL) subcutaneous pen injector ([employer]Sem[employer]) terbinafine HCl 1 % topical cream 1 applic topical PRN PRN 01/15/23 10/17/23 clindamycin HCl 300 mg capsule 300 mg PO Q6H #40 caps 10/16/23 10/17/23 Previous Rx's Medication Instructions Recorded clindamycin HCl 300 mg capsule 300 mg PO Q6H #40 caps 10/16/23 Allergies Allergy/AdvReac Type Severity Reaction Status Date / Time ciprofloxacin AdvReac Mild Itching Unverified 10/17/23 11:56 General Stated Complaint: Cellulitis ALY: 4 Course Vital Signs Vital signs: Vital Signs Temperature 36.9 C 10/17/23 11:58 Pulse 105 H 10/17/23 11:58 Respiratory Rate 18 10/17/23 11:58 Blood Pressure 128/67 10/17/23 11:58 Pulse Oximetry 96 10/17/23 11:58 Temperature 36.9 C 10/17/23 12:14 Temperature Source Oral 10/17/23 12:14 Pulse 85 10/17/23 14:03 Pulse 88 10/17/23 14:03 Respiratory Rate 12 10/17/23 14:03 Respiratory Effort Normal, Non-Labored 10/17/23 12:01 Blood Pressure 110/47 L 10/17/23 14:03 Blood Pressure Mean 68 10/17/23 14:03 Pulse Oximetry 98 10/17/23 14:03 Oxygen Delivery Method Room Air 10/17/23 13:15 Oxygen Flow Rate 0 10/17/23 13:15 Pain Level 1 10/17/23 13:15 Lab/Test Results Lab/Test Results: Laboratory Tests Range/Units 10/17/23 12:45 WBC (4.4-10.8) 10^3/uL 9.29 RBC (4.36-5.78) 10^6/uL 4.07 L Hgb (13.5-17.5) g/dL 13.6 Hct (40.0-50.0) % 40.1 MCV (80-95) fL 99 H MCH (27.0-33.0) pg 33.4 H MCHC (32.0-36.0) % 33.9 RDW (11.8-14.1) % 12.5 Plt Count (130-400) 10^3/uL 218 MPV (8.0-11.0) fL 9.9 Immature Gran % 0.6 Neutrophils % 65.6 Lymphocytes % 24.0 Monocytes % 6.8 Eosinophils % 2.6 Basophils % 0.4 Nucleated RBC % (0.0-0.3) % 0.0 Absolute Neutrophils (1.2-6.7) 10^3/uL 6.09 Absolute Lymphocytes (1.2-3.4) 10^3/uL 2.23 Absolute Monocytes (0.1-0.8) 10^3/uL 0.63 Absolute Eosinophils (0.0-0.7) 10^3/uL 0.24 Absolute Basophils (0.0-0.2) 10^3/uL 0.04 Sodium (136-145) mmol/L 139 Potassium (3.5-5.1) mmol/L 4.1 Chloride (98-107) mmol/L 103 Carbon Dioxide (21.0-32.0) mmol/L 24.8 Anion Gap (3-11) mmol/L 11.2 H BUN (7-18) mg/dL 13 Creatinine (0.70-1.30) mg/dL 1.5 H Est GFR (CKD-EPI 2020) (mL/min/1.73m2) 52.97 Glucose (74-106) mg/dL 317 H Calcium (8.5-10.1) mg/dL 9.3 Medical Decision Making 58-year-old diabetic presenting for reassessment of abscess that was I&D 2 days ago Patient is afebrile and nontoxic He has approximately 2 inch area of induration underneath his left pectoral region with a draining abscess, no overlying cellulitis, alert and oriented, no abdominal tenderness, lungs clear to auscultation Is alert and oriented, he is some induration around the draining abscess, I did extend the wound margins and irrigated with suction, IV clindamycin dose was administered, 4 tablets of oxycodone for home Warm compresses encouraged and surgical reassessment was placed for Thursday Patient made aware that his blood sugar is high, 317, it is improved from his prior assessment, however he will need reassessment by his doctor as he may require insulin at this time I do not think it is unreasonable as patient does not have obvious cellulitis or signs of systemic illness to continue to trial clindamycin at home, 48-hour reassessment recommended Return precautions reviewed and patient expressed understanding Quality:SDOH Health Related Social Needs: Health related social needs risk of homeless, material hardship PFSH All Active Problems (Updated 10/17/23 @ 13:51 by DAJUAN Liang) Mild renal insufficiency (Acute) Acute hyperglycemia (Acute) Acidosis, lactic (Acute) Abscess of skin and subcutaneous tissue (Acute) Smoker (Acute) Candidal intertrigo (Acute) Type 2 diabetes mellitus (Acute) Hypertension (Chronic) Acute non-ST elevation myocardial infarction (NSTEMI) (Acute) Medical History History of pulmonary embolism ADHD Glaucoma Coronary artery disease Perforation of colon as colonoscopy complication Surgical History S/P laparotomy multiple surgeries after perforation Family History Brother , multiple older brothers Heart disease Mother Heart disease Social History Smoking/Tobacco Use Status: Current every day Tobacco Type: cigarettes Counseling given: provider counseling, support medications and counseling >3 minutes Smoking risk assessment performed?: Yes Alcohol Intake: current Alcohol Intake frequency: 0-2 drinks per day Substance use type: does not use Housing: house Do you feel safe at home: Yes Do you feel safe in your relationship?: Yes Additional Social history: Lives with Micro[employer] Valentine and dog. 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 [employer] Have you Been Recently Intoxicated or Drunk Within the Last 30 days?: No Have you Ever Experienced Previous Episodes of Alcohol Withdrawal?: No Have you ever Experienced Withdrawal Seizures?: No Have you ever Experienced Delirium Tremens(DT)s?: No Have you ever undergone Alcohol Rehabilitation Treatment (i.e, inpt ot outpatient treatment programs)?: No Have you ever Experienced Blackouts?: No Have you ever Combined Alcohol with other Downers within the last 90 days?: No Have you ever Combined Alcohol with any other Substance of Abuse during the last 90 days?: No Positive Blood Alcohol level on Presentation? [PCS.BAL]: No Evidence of Increased Autonomic Activity (i.e. HR>120, tremor, sweating, agitation, nausea)?: No Result: 0 Discharge Plan Disposition Patient Disposition: Home Condition: Stable Discharge Details Clinical Impression: Abscess of skin and subcutaneous tissue, Type 2 diabetes mellitus, Acute hyperglycemia Primary Care Provider: Jerry Chen ED Provider: Jeane Swenson Home Meds and New Rx's Prescriptions: Continued latanoprost 0.005 % Drops 1 drp ophthalmic (eye) DAILY terbinafine HCl 1 % Cream 1 applic TOPICAL PRN PRN atorvastatin 80 mg Tablet 80 mg PO DAILY glipizide 10 mg Tablet 10 mg PO BID metoprolol succinate 100 mg Tablet Extended Release 24 Hr 150 mg PO DAILY dextroamphetamine-amphetamine [Adderall XR] 20 mg Capsule,Extended Release 24hr 20 mg PO DAILY metformin 1,000 mg Tablet 2,000 mg PO DAILY nitroglycerin 0.4 mg Tablet, Sublingual 0.4 mg sublingual PRN PRN folic acid 1 mg Tablet 1 mg PO DAILY lisinopril 40 mg Tablet 40 mg PO DAILY cholecalciferol (vitamin D3) 25 mcg (1,000 unit) Capsule 25 mcg PO DAILY duloxetine 60 mg Capsule,Delayed Release(Dr/Ec) 120 mg PO DAILY rivaroxaban 20 mg Tablet 20 mg PO DAILY Ozempic 1 mg/dose (2 mg/1.5 mL) Pen Injector 1 mg SUBCUT QWEEK clindamycin HCl 300 mg capsule 300 mg PO Q6H Qty: 40 0RF Discharge Instructions Instructions: Abscess (ED), Diabetic Hyperglycemia (ED) Additional Instructions: Take antibiotic as prescribed, I have given you the same antibiotic, clindamycin, take this 3 times a day, you will then transition back to 4 times a day repeat with your prescribed clindamycin Given you oxycodone 2, this is to be used sparingly for pain not improved with Tylenol Warm compresses 3-4 times a day, change your dressing at least once a day Follow-up with surgery on Thursday, and listing the number for you to follow-up Please return earlier should you have spreading redness, fever, worsening pain Referrals: Jerry Chen [Primary Care Provider] - Monica Thomson DO [OSTEOPATHIC DOCTOR] - 2 days
--- NOTE | 2023-10-18 12:16 | NUR.NOTE ---
Accessed Pt chart to locate the antibiotics prescribed during the visit.
== END 2023-10-17 14:55 | disposition home or self-care (01) ==
PROVIDERS: Emergency Provider Physician Assistant; PCP Family Medicine
DX: L02.213 Cutaneous abscess of chest wall (principal); E11.65 Type 2 diabetes mellitus with hyperglycemia; I10 Essential (primary) hypertension; E78.5 Hyperlipidemia, unspecified; Z79.899 Other long term (current) drug therapy; Z79.85 Long-term (current) use of injectable non-insulin antidiabetic drugs
CPT/HCPCS: 10060; 80048; 96361; 96365; 99284; 85025; J0737

== ENCOUNTER 2023-10-26 12:43 | Emergency (ER) | payer OTHER, SELFPAY ==
[2023-10-26 12:46] VITALS: BP 154/63; PULSE 73; RESP 17; TEMP 36.5; O2SAT 99
--- NOTE | 2023-10-26 13:28 | ED.GENADUL_ITS ---
HPI General Mode of arrival: ambulatory . Date/Time Provider Initiated Documentation: 10/26/23 13:00 . Limitations to Documentation: no limitations . Information obtained by: patient and RN notes reviewed . History of Present Illness 58 year old M presents to the emergency department with the chief complaint of Wound recheck, Patient started experiencing this day(s) (9) and it has been constant. Patient notes no other symptoms.. Related Data Home Medications Medication Instructions Recorded Confirmed atorvastatin 80 mg tablet 80 mg PO DAILY 01/15/23 10/26/23 cholecalciferol (vitamin D3) 25 25 mcg PO DAILY 01/15/23 10/26/23 mcg (1,000 unit) capsule dextroamphetamine-amphetamine ER 20 mg PO DAILY 01/15/23 10/26/23 20 mg 24hr capsule,extend release (Adderall XR) duloxetine 60 mg capsule,delayed 120 mg PO DAILY 01/15/23 10/26/23 release folic acid 1 mg tablet 1 mg PO DAILY 01/15/23 10/26/23 glipizide 10 mg tablet 10 mg PO BID 01/15/23 10/26/23 latanoprost 0.005 % eye drops 1 drp ophthalmic (eye) DAILY 01/15/23 10/26/23 lisinopril 40 mg tablet 40 mg PO DAILY 01/15/23 10/26/23 metformin 1,000 mg tablet 2,000 mg PO DAILY 01/15/23 10/26/23 metoprolol succinate 100 mg 150 mg PO DAILY 01/15/23 10/26/23 tablet,extended release 24 hr nitroglycerin 0.4 mg sublingual 0.4 mg sublingual PRN PRN 01/15/23 10/26/23 tablet rivaroxaban 20 mg tablet 20 mg PO DAILY 01/15/23 10/26/23 semaglutide 1 mg/dose (2 mg/1.5 1 mg subcut QWEEK 01/15/23 10/26/23 mL) subcutaneous pen injector (Ozempic) terbinafine HCl 1 % topical cream 1 applic topical PRN PRN 01/15/23 10/26/23 clindamycin HCl 300 mg capsule 300 mg PO Q6H #40 caps 10/16/23 10/26/23 Previous Rx's Medication Instructions Recorded clindamycin HCl 300 mg capsule 300 mg PO Q6H #40 caps 10/16/23 Allergies Allergy/AdvReac Type Severity Reaction Status Date / Time ciprofloxacin AdvReac Mild Itching Unverified 10/17/23 11:56 General Stated Complaint: Recheck ALY: 4 Review of Systems Constitutional Constitutional: Denies chills and Denies fever(s) Cardiovascular Cardiovascular: Denies chest pain and Denies dyspnea Respiratory Respiratory: Denies cough and Denies dyspnea Integumentary/Breasts Skin/Breast: Reports as per HPI, Reports furuncle and Reports non-healing lesions Exam Const General: cooperative, no acute distress and not ill appearing Orientation: alert, awake and oriented x3 HENMT Mouth: moist mucous membranes Chest Chest: other (Induration surrounding I&D site, no erythema or cellulitis) Chest/axillae images: 2 1. I&D site-open Resp Effort & Inspection: normal respiratory effort, able to speak in complete sentences and no respiratory distress Neuro General: patient alert, patient awake, patient oriented x3, moves all extremities and no focal motor deficits Sensory Exam: no sensory deficits noted Course Vital Signs Vital signs: Vital Signs Temperature 36.5 C 10/26/23 12:46 Pulse 73 10/26/23 12:46 Respiratory Rate 17 10/26/23 12:46 Blood Pressure 154/63 H 10/26/23 12:46 Pulse Oximetry 99 10/26/23 12:46 Temperature 36.5 C 10/26/23 12:46 Temperature Source Oral 10/26/23 12:46 Pulse 73 10/26/23 12:46 Respiratory Rate 17 10/26/23 12:46 Respiratory Effort Normal, Non-Labored 10/26/23 12:52 Blood Pressure 154/63 H 10/26/23 12:46 Blood Pressure Position Supine 10/26/23 12:46 Pulse Oximetry 99 10/26/23 12:46 Oxygen Delivery Method Room Air 10/26/23 12:46 Oxygen Flow Rate 0 10/26/23 12:46 Medical Decision Making Patient presenting to the emergency department for recheck of I&D for left sided chest wall abscess. He states that he is mainly here due to his packing falling out yesterday and not having a follow-up appointment. He did attempt to contact general surgery office which [facility] and has not heard anything back since. Patient denies any fever or chills, does state continued drainage from the site and odor but denies any increased redness, fever or chills, any significant worsening of pain or discomfort, denies all other symptoms. Physical exam shows mild induration just superior to the incision site otherwise no erythema or cellulitis, there is still odor present but no significant worsening of symptoms that I can see at this time. I do not feel that wound needs to be repacked at this point. Patient has been taking his antibiotic but has missed quite a few doses. He was encouraged to start taking medication as prescribed and return for new or worsening symptoms otherwise was placed on care management follow-up list to follow-up with general surgeons office for recheck preferably in the next couple days to ensure appropriate healing continues. After discussion of diagnosis and plan of care patient has no further needs, questions, or concerns and states clear understanding to return to the emergency department for any worsening symptoms. This documentation was generated using [employer] dictation system, please disregard any oddities of phrase or misspellings. Medical Records Medical records reviewed: Yes I reviewed the patient's medical records. Medical records narrative: Previous ER visits Quality:SDOH Health Related Social Needs: 2 Health related social needs risk of homeless, material hardship Health related social needs details [facility], poor control of DM, reluctant to seek medical treatment PFSH All Active Problems Encounter for wound re-check (Acute) Mild renal insufficiency (Acute) Acute hyperglycemia (Acute) Acidosis, lactic (Acute) Abscess of skin and subcutaneous tissue (Acute) Smoker (Acute) Candidal intertrigo (Acute) Type 2 diabetes mellitus (Acute) Hypertension (Chronic) Acute non-ST elevation myocardial infarction (NSTEMI) (Acute) Medical History History of pulmonary embolism ADHD Glaucoma Coronary artery disease Perforation of colon as colonoscopy complication Surgical History S/P laparotomy multiple surgeries after perforation Family History Brother , multiple older brothers Heart disease Mother Heart disease Social History Smoking/Tobacco Use Status: Current every day Tobacco Type: cigarettes Counseling given: provider counseling, support medications and counseling >3 minutes Smoking risk assessment performed?: Yes Alcohol Intake: current Alcohol Intake frequency: 0-2 drinks per day Substance use type: does not use Housing: house Do you feel safe at home: Yes Do you feel safe in your relationship?: Yes Additional Social history: Lives with GF Valentine and dog. 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 [employer] Discharge Plan Disposition Patient Disposition: Home Discharge Details Clinical Impression: Encounter for wound re-check Primary Care Provider: Jerry Chen ED Provider: Joni Howard Home Meds and New Rx's Prescriptions: Continued latanoprost 0.005 % Drops 1 drp ophthalmic (eye) DAILY terbinafine HCl 1 % Cream 1 applic TOPICAL PRN PRN atorvastatin 80 mg Tablet 80 mg PO DAILY glipizide 10 mg Tablet 10 mg PO BID metoprolol succinate 100 mg Tablet Extended Release 24 Hr 150 mg PO DAILY dextroamphetamine-amphetamine [Adderall XR] 20 mg Capsule,Extended Release 24hr 20 mg PO DAILY metformin 1,000 mg Tablet 2,000 mg PO DAILY nitroglycerin 0.4 mg Tablet, Sublingual 0.4 mg sublingual PRN PRN folic acid 1 mg Tablet 1 mg PO DAILY lisinopril 40 mg Tablet 40 mg PO DAILY cholecalciferol (vitamin D3) 25 mcg (1,000 unit) Capsule 25 mcg PO DAILY duloxetine 60 mg Capsule,Delayed Release(Dr/Ec) 120 mg PO DAILY rivaroxaban 20 mg Tablet 20 mg PO DAILY Ozempic 1 mg/dose (2 mg/1.5 mL) Pen Injector 1 mg SUBCUT QWEEK clindamycin HCl 300 mg capsule 300 mg PO Q6H Qty: 40 0RF Discharge Instructions Instructions: Abscess Follow-up (ED) Additional Instructions: Continue to take your medication as prescribed and monitor the incision for any significant increase of drainage, spreading redness, worsening pain or discomfort, or fever or chills. If this occurs you should return immediately to the emergency department for reassessment. We have placed a referral with care management so that you can be seen either by the [facility] surgical office or our general surgeons office for reassessment and to ensure proper healing. Please take your antibiotics as prescribed and do not miss a dose also complete entire course of medication. Referrals: [facility] [Outside] - 5 days Discharge Data Discharge Date/Time-TO BE ENTERED AT DEPARTURE: 10/26/23 13:42
[2023-10-26 13:40] VITALS: PULSE 87; RESP 16; O2SAT 97
== END 2023-10-26 13:42 | disposition home or self-care (01) ==
LOC: ER 14:08
PROVIDERS: Emergency Provider Nurse Practitioner Family; PCP Family Medicine
DX: Z48.00 Encounter for change or removal of nonsurgical wound dressing (principal); I25.10 Atherosclerotic heart disease of native coronary artery without angina pectoris; F17.210 Nicotine dependence, cigarettes, uncomplicated
CPT/HCPCS: 99282